=== PATIENT | female | born 1950 | race Caucasian/White ===

== ENCOUNTER 2024-01-13 16:12 | Inpatient (IN) | payer MEDICARE, OTHER ==
[~2024-01-13] VITALS: Ht 175.3 cm; Wt 68.0 kg
[2024-01-13 17:37] LABS: BASOPHILS % (AUTO) 0.1 % (0.0-2.0); EOSINOPHILS % (AUTO) 0.1 % (0.0-6.0); HEMATOCRIT 42 % (33-45); HEMOGLOBIN 13.8 g/dL (11.5-14.8); LYMPHOCYTES % (AUTO) 5.1 % (20.0-44.0); MEAN CORPUSCULAR HEMOGLOBIN 29 PG (26.0-33.0); MEAN CORPUSCULAR HGB CONC 33 g/dl (31.0-36.0); MEAN CORPUSCULAR VOLUME 87 fL (82-100); MONOCYTES # (AUTO) 1.7 K/uL (0.1-1.30); MONOCYTES % (AUTO) 8.8 % (2.0-12.0); NEUTROPHILS # (AUTO) 16.5 K/uL (1.8-8.9); NEUTROPHILS % (AUTO) 85.9 % (43.0-81.0); PLATELET COUNT (AUTO) 385 K/uL (150-450); RED BLOOD CELL COUNT(AUTO) 4.84 MIL/uL (4.0-5.2); RED CELL DISTRIBUTION WIDTH 16.6 % (11.5-15.0); WHITE BLOOD COUNT (AUTO) 19.3 K/uL (4.3-11.0)
[2024-01-13 17:50] LABS: CALCIUM, SERUM 8.5 mg/dL (8.5-10.1); CARBON DIOXIDE 30 mmol/L (21-32); CHLORIDE 101 mmol/L (98-107); CREATININE 0.6 mg/dL (0.6-1.3); GLUCOSE 127 mg/dL (74-106); POTASSIUM 4.2 mmol/L (3.5-5.1); SODIUM SERUM 138 mmol/L (136-145); UREA NITROGEN, BLOOD 19 mg/dL (7-18)
[2024-01-13 18:07] LABS: ALANINE AMINOTRANSFERASE 26 U/L (12-78); ALBUMIN 3.6 g/dL (3.4-5.0); ALKALINE PHOSPHATASE 133 U/L (46-116); ASPARTATE AMINOTRANSFERASE 9 U/L (15-37); BILIRUBIN,DIRECT 0.1 mg/dL (0.0-0.2); BILIRUBIN,TOTAL 0.4 mg/dL (0.2-1.0); TOTAL PROTEIN, SERUM 6.9 g/dL (6.4-8.2)
[2024-01-13 18:10] LABS: ACETAMINOPHEN <10 ug/ml (10-30); ALCOHOL, BLOOD < 3 mg/dL (0-10); SALICYLATE 0.4 mg/dL (2.8-20.0)
[2024-01-13 18:28] LABS: APPEARANCE,URINE CLEAR (CLEAR); BILIRUBIN,URINE NEGATIVE (NEGATIVE); BLOOD, URINE NEGATIVE Ery/uL (NEGATIVE); COLOR,URINE YELLOW (YELLOW); KETONES,URINE NEGATIVE (NEGATIVE); LEUKOCYTE ESTERASE ,URINE NEGATIVE (NEGATIVE); NITRITE, URINE NEGATIVE (NEGATIVE); PROTEIN,URINE 1+ mg/dl (NEGATIVE); UGLUCOSE NEGATIVE (NEGATIVE); UROBILINOGEN,URINE 0.2 EU/dL (0.2)
[2024-01-13 18:50] LABS: AMPHETAMINE, URINE NEGATIVE (NEGATIVE); BARBITURATE, URINE NEGATIVE (NEGATIVE); BENZODIAZEPINE, URINE NEGATIVE (NEGATIVE); CANNABINOID, URINE NEGATIVE (NEGATIVE); COCCAINE, URINE NEGATIVE (NEGATIVE); PHENCYCLIDINE SCREEN,URINE NEGATIVE (NEGATIVE)
[2024-01-13 18:51] LABS: OPIATE, URINE POSITIVE (NEGATIVE)
[2024-01-13 18:58] LABS: ADD URINE CULTURE NO; BACTERIA,URINE Few /HPF (None Seen); MUCUS,URINE Few /LPF (None Seen); RBC,URINE 0-2 /HPF (0-2); SQUAMOUS EPITHELIAL CELL,UR 0-2 /HPF (None Seen)
[2024-01-13] MEDS ORDERED: DOCU100C36 PO (19:09)
[2024-01-13] MEDS ORDERED: NALO4SPR NS (19:09)
[2024-01-13] MEDS ORDERED: NYST500P2 TP (19:09)
[2024-01-13] MEDS ORDERED: NYST15PO4 TP (19:09)
[2024-01-13] MEDS ORDERED: ASPI-1420 PO (19:09)
[2024-01-13] MEDS ORDERED: METO5TAB2 PO (19:09)
[2024-01-13] MEDS ORDERED: POLY15DR31 EACHEYE (19:09)
[2024-01-13] MEDS ORDERED: DIPH25TA62 PO (19:09)
[2024-01-13] MEDS ORDERED: FAMO20TA8 PO (19:09)
[2024-01-13] MEDS ORDERED: SENN8.6T19 PO (19:09)
[2024-01-13] MEDS ORDERED: ARGI1POW13 PO (19:09)
[2024-01-13] MEDS ORDERED: PANT40TA49 PO (19:09)
[2024-01-13] MEDS ORDERED: MENT8OIN TP (19:09)
[2024-01-13] MEDS ORDERED: ZINC50TA69 PO (19:09)
[2024-01-13] MEDS ORDERED: DIGO125T PO (19:09)
[2024-01-13] MEDS ORDERED: TURM1CAP2 PO (19:09)
[2024-01-13] MEDS ORDERED: MAGN400T52 PO (19:09)
[2024-01-13] MEDS ORDERED: LEVA15HF4 IH (19:09)
[2024-01-13] MEDS ORDERED: FLUT16SP BNOSTRILS (19:09)
[2024-01-13] MEDS ORDERED: GUAI-1189 PO (19:09)
[2024-01-13] MEDS ORDERED: SIME80TA15 PO (19:09)
[2024-01-13] MEDS ORDERED: DIPH-674 PO (19:09)
[2024-01-13] MEDS ORDERED: CYAN-51 PO (19:09)
[2024-01-13] MEDS ORDERED: METH57CR22 TP (19:09)
[2024-01-13] MEDS ORDERED: CRAN300T PO (19:09)
[2024-01-13] MEDS ORDERED: ONDA-97 PO (19:09)
[2024-01-13] MEDS ORDERED: LACT1CAP7 PO (19:09)
[2024-01-13] MEDS ORDERED: AMLO-212 PO (19:09)
[2024-01-13] MEDS ORDERED: ATOR10TA PO (19:09)
[2024-01-13] MEDS ORDERED: ACET-637 PO (19:09)
[2024-01-13] MEDS ORDERED: MORP15TA10 PO (19:09)
[2024-01-13] MEDS ORDERED: CEPHALEXIN MONOHYDRATE 500 MG CAPSULE PO ONE (19:21)
[2024-01-13 19:30] LABS: BAND % (MANUAL) 2 % (0.0-5.0); LYMPHOCYTES % (MANUAL) 9 % (16-48); MYELOCYTES % 2 % (0-0); NEUTROPHILS % (MANUAL) 87 (42-76)
[2024-01-13 19:31] LABS: ANISOCYTOSIS 1+; PLATELET ESTIMATE ADEQUATE
[2024-01-13] MEDS: CEPHALEXIN MONOHYDRATE 500 MG CAPSULE PO ONE (19:46)
[2024-01-13] MEDS ORDERED: MAGNESIUM HYDROXIDE 30 ML UDC PO PRN (23:00)
[2024-01-13] MEDS ORDERED: TEMAZEPAM 7.5 MG CAPSULE PO PRN ×2 (23:00)
[2024-01-13] MEDS ORDERED: ACETAMINOPHEN 325 MG TABLET PO PRN (23:00)
[2024-01-13] MEDS ORDERED: clonazePAM 0.5 MG TABLET PO PRN ×2 (23:00)
[2024-01-13] MEDS: BLOOD SUGAR DIAGNOSTIC 1 EACH STRIP IN ONE (23:12)
[2024-01-14] MEDS ORDERED: MENTHOL TP PRN (00:30)
[2024-01-14] MEDS ORDERED: CAMPHOR TP PRN (00:30)
[2024-01-14] MEDS ORDERED: DOCUSATE SODIUM 100 MG CAPSULE PO PRN (00:30)
[2024-01-14] MEDS ORDERED: ALBUTEROL HALF STRENGTH 1.25 MG/3 ML VIAL.NEB NEB PRN (01:00)
[2024-01-14] MEDS: MAGNESIUM OXIDE 400 MG TABLET PO SCH (05:00)
[2024-01-14] MEDS: OLANZAPINE 10 MG VIAL IM ONE ×2 (05:32→12:26)
[2024-01-14] MEDS ORDERED: ONDANSETRON 4 MG TAB.RAPDIS PO PRN (07:30)
[2024-01-14] MEDS: ASPIRIN EC 81 MG TABLET.DR PO SCH (08:30)
[2024-01-14] MEDS: SENNOSIDES 8.6 MG TABLET PO SCH (08:30)
[2024-01-14] MEDS: PANTOPRAZOLE 40 MG TABLET.DR PO SCH (08:30)
[2024-01-14] MEDS: LACTOBACILLUS RHAMNOSUS GG 1 EACH CAP.SPRINK PO SCH (08:31)
[2024-01-14] MEDS: AMLODIPINE BESYLATE 5 MG TABLET PO SCH (08:36)
[2024-01-14] MEDS: DIGOXIN 0.125 MG TABLET PO SCH (08:36)
[2024-01-14] MEDS ORDERED: ARGININE PO SCH (09:00)
[2024-01-14] MEDS: FLUTICASONE PROPIONATE 16 GM BOTTLE NS SCH (09:00)
[2024-01-14] MEDS: ZINC SULFATE 220 MG CAPSULE PO SCH (09:00)
[2024-01-14] MEDS ORDERED: Medication Not On Formulary EA (Cranberry Extract (Cranberry) 450 MG) PO SCH (09:00)
[2024-01-14] MEDS ORDERED: Medication Not On Formulary EA (Turmeric/Turmeric Root Extract (Turmeric 500 mg Capsule) PO SCH (09:00)
[2024-01-14] MEDS ORDERED: ASCORBIC ACID PO SCH (09:00)
[2024-01-14] MEDS: CEPHALEXIN MONOHYDRATE 500 MG CAPSULE PO SCH (09:00)
[2024-01-14] MEDS ORDERED: VITAMIN E PO SCH (09:00)
[2024-01-14] MEDS ORDERED: [UNRECOGNIZED DRUG - OTHER] PO SCH (09:00)
[2024-01-14] MEDS: CYANOCOBALAMIN 500 MCG TABLET PO SCH (09:05)
[2024-01-14] MEDS: diphenhydrAMINE HCL 50 MG/ML VIAL IM ONE (12:25)
[2024-01-14 15:18] LABS: EOSINOPHILS # (AUTO) 0.2 K/uL (0.0-0.7); EOSINOPHILS % (AUTO) 1.1 % (0.0-6.0); HEMATOCRIT 41 % (33-45); HEMOGLOBIN 13.5 g/dL (11.5-14.8); LYMPHOCYTES # (AUTO) 2.1 K/uL (0.8-4.8); LYMPHOCYTES % (AUTO) 13.1 % (20.0-44.0); MEAN CORPUSCULAR HEMOGLOBIN 29 PG (26.0-33.0); MEAN CORPUSCULAR HGB CONC 33 g/dl (31.0-36.0); MEAN CORPUSCULAR VOLUME 88 fL (82-100); MONOCYTES # (AUTO) 1.7 K/uL (0.1-1.30); MONOCYTES % (AUTO) 10.7 % (2.0-12.0); NEUTROPHILS # (AUTO) 11.9 K/uL (1.8-8.9); NEUTROPHILS % (AUTO) 75.1 % (43.0-81.0); PLATELET COUNT (AUTO) 365 K/uL (150-450); RED BLOOD CELL COUNT(AUTO) 4.65 MIL/uL (4.0-5.2); RED CELL DISTRIBUTION WIDTH 16.9 % (11.5-15.0); WHITE BLOOD COUNT (AUTO) 15.9 K/uL (4.3-11.0)
[2024-01-14 15:31] LABS: ALANINE AMINOTRANSFERASE 26 U/L (12-78); ALBUMIN 3.3 g/dL (3.4-5.0); ALKALINE PHOSPHATASE 128 U/L (46-116); ASPARTATE AMINOTRANSFERASE 15 U/L (15-37); BILIRUBIN,TOTAL 0.5 mg/dL (0.2-1.0); CALCIUM, SERUM 8.2 mg/dL (8.5-10.1); CARBON DIOXIDE 26 mmol/L (21-32); CHLORIDE 105 mmol/L (98-107); CREATININE 0.7 mg/dL (0.6-1.3); GLUCOSE 131 mg/dL (74-106); POTASSIUM 3.8 mmol/L (3.5-5.1); SODIUM SERUM 140 mmol/L (136-145); TOTAL PROTEIN, SERUM 6.4 g/dL (6.4-8.2); UREA NITROGEN, BLOOD 19 mg/dL (7-18)
[2024-01-14 15:33] LABS: CHOLESTEROL 239 mg/dL (<200); HDL CHOLESTEROL 79 mg/dL (40-60); LDL 125 mg/dL (0-99); TRIGLYCERIDES 246 mg/dL (30-150)
[2024-01-14 16:00] VITALS: BP 125/66; TEMP 98; O2SAT 97
[2024-01-14] MEDS: risperiDONE 1 MG TABLET PO SCH (17:00)
[2024-01-14] MEDS: MORPHINE SULFATE SR 15 MG TABLET.SA PO PRN (17:14)
[2024-01-14 20:00] VITALS: BP 121/65; TEMP 98.2; O2SAT 97
[2024-01-14] MEDS: METOCLOPRAMIDE HCL 10 MG TABLET PO PRN (20:03)
[2024-01-14] MEDS: ATORVASTATIN 10 MG TABLET PO SCH (21:11)
[2024-01-14] MEDS ORDERED: TEMAZEPAM 7.5 MG CAPSULE PO PRN (22:00)
[2024-01-15] MEDS: diphenhydrAMINE HCL 25 MG CAPSULE PO ONE (02:57)
[2024-01-15 08:00] VITALS: BP_SYST 134; BP_DIAS 53; BP_DIAS 63; TEMP 98.4; O2SAT 98
[2024-01-15] MEDS: OLANZAPINE 2.5 MG TABLET PO SCH (13:00)
[2024-01-15 16:00] VITALS: BP 126/64; TEMP 98; O2SAT 98
[2024-01-15 20:00] VITALS: BP 118/61; TEMP 98.4; O2SAT 97
[2024-01-15 20:48] VITALS: O2SAT 98
[2024-01-15] MEDS: LEVALBUTEROL HCL NEB 1.25 MG/0.5 ML VIAL.NEB NEB PRN (20:48)
[2024-01-15] MEDS: MUPIROCIN OINT 2% 22 GM TUBE NS SCH (21:00)
[2024-01-15 21:05] VITALS: O2SAT 99
[2024-01-16] VITALS (9 sets, daily range): BP systolic 106–119; BP diastolic 59–69; TEMP 98.2–99; O2SAT 96–99
[2024-01-16] MEDS: LEVALBUTEROL HCL NEB 1.25 MG/0.5 ML VIAL.NEB ONE ×2 (13:50→22:12)
[2024-01-16] MEDS ORDERED: PHENAZOPYRIDINE HCL 200 MG TABLET PO PRN (19:00)
[2024-01-17] MEDS: PHENAZOPYRIDINE HCL 200 MG TABLET ONE (03:12)
[2024-01-17] MEDS: PHENAZOPYRIDINE HCL 200 MG TABLET PO PRN (03:15)
[2024-01-17 06:54] LABS: BASOPHILS % (AUTO) 0.2 % (0.0-2.0); EOSINOPHILS # (AUTO) 1.3 K/uL (0.0-0.7); EOSINOPHILS % (AUTO) 12.2 % (0.0-6.0); HEMATOCRIT 38 % (33-45); HEMOGLOBIN 12.6 g/dL (11.5-14.8); LYMPHOCYTES # (AUTO) 1.1 K/uL (0.8-4.8); LYMPHOCYTES % (AUTO) 10.6 % (20.0-44.0); MEAN CORPUSCULAR HEMOGLOBIN 29 PG (26.0-33.0); MEAN CORPUSCULAR HGB CONC 33 g/dl (31.0-36.0); MEAN CORPUSCULAR VOLUME 89 fL (82-100); MONOCYTES # (AUTO) 0.6 K/uL (0.1-1.30); NEUTROPHILS # (AUTO) 7.5 K/uL (1.8-8.9); PLATELET COUNT (AUTO) 222 K/uL (150-450); RED BLOOD CELL COUNT(AUTO) 4.31 MIL/uL (4.0-5.2); RED CELL DISTRIBUTION WIDTH 16.4 % (11.5-15.0); WHITE BLOOD COUNT (AUTO) 10.5 K/uL (4.3-11.0)
[2024-01-17 07:13] LABS: CALCIUM, SERUM 7.7 mg/dL (8.5-10.1); CARBON DIOXIDE 32 mmol/L (21-32); CHLORIDE 104 mmol/L (98-107); CREATININE 0.6 mg/dL (0.6-1.3); GLUCOSE 114 mg/dL (74-106); MAGNESIUM 2.7 mg/dL (1.8-2.4); PHOSPHORUS 3.3 mg/dL (2.5-4.9); SODIUM SERUM 139 mmol/L (136-145); UREA NITROGEN, BLOOD 14 mg/dL (7-18)
[2024-01-17 08:00] VITALS: BP 134/61; TEMP 99.1; O2SAT 96
[2024-01-17] MEDS: diphenhydrAMINE HCL ELIX 25 MG/10 ML UDC PO PRN (14:04)
[2024-01-17 16:00] VITALS: BP 111/66; TEMP 99.1; O2SAT 100
[2024-01-17 20:10] VITALS: O2SAT 96
[2024-01-17 20:20] VITALS: O2SAT 99
[2024-01-17] MEDS: LEVALBUTEROL HCL NEB 1.25 MG/0.5 ML VIAL.NEB ONE (20:22)
[2024-01-17 20:35] VITALS: BP 127/58; TEMP 99; O2SAT 96
[2024-01-18] VITALS (11 sets, daily range): BP systolic 130–140; BP diastolic 60–67; TEMP 98.4–98.8; O2SAT 95–98
[2024-01-18] MEDS: LORATADINE 10 MG TABLET PO SCH (00:37)
[2024-01-18] MEDS: dexAMETHasone 1 MG TABLET PO SCH (14:23)
[2024-01-18] MEDS: PHENAZOPYRIDINE HCL 200 MG TABLET ONE (22:03)
[2024-01-19 08:00] VITALS: BP 139/60; TEMP 98.4; O2SAT 98
[2024-01-19 12:46] VITALS: O2SAT 97
[2024-01-19 12:57] VITALS: O2SAT 98
[2024-01-19 16:00] VITALS: BP 131/51; TEMP 99.1; O2SAT 98
[2024-01-19] MEDS: POLYVINYL ALCOHOL 15 ML BOTTLE EACHEYE PRN (18:26)
[2024-01-19 20:38] VITALS: BP 132/58; TEMP 98.6; O2SAT 97
[2024-01-20 08:00] VITALS: BP 131/63; TEMP 97.7; O2SAT 98
[2024-01-20] MEDS: METHYL SALICYLATE/MENTHOL 28GM 28 GM TUBE TP PRN (10:35)
[2024-01-20] MEDS: SIMETHICONE 80 MG TAB.CHEW PO PRN (10:35)
[2024-01-20 16:00] VITALS: BP 126/58; TEMP 97.8; O2SAT 97
[2024-01-20] MEDS: FAMOTIDINE (20 MG) 20 MG TABLET PO SCH (17:20)
[2024-01-20] MEDS: dexAMETHasone 1 MG/ML UDC PO SCH (19:51)
[2024-01-20 20:00] VITALS: BP 131/66; TEMP 97.9; O2SAT 97
[2024-01-20 20:20] LABS: APPEARANCE,URINE CLEAR (CLEAR); BILIRUBIN,URINE NEGATIVE (NEGATIVE); BLOOD, URINE NEGATIVE Ery/uL (NEGATIVE); COLOR,URINE YELLOW (YELLOW); KETONES,URINE NEGATIVE (NEGATIVE); LEUKOCYTE ESTERASE ,URINE NEGATIVE (NEGATIVE); NITRITE, URINE NEGATIVE (NEGATIVE); PROTEIN,URINE NEGATIVE (NEGATIVE); UGLUCOSE 1+ mg/dL (NEGATIVE); UROBILINOGEN,URINE 0.2 EU/dL (0.2)
[2024-01-20 20:32] LABS: ADD URINE CULTURE NO; BACTERIA,URINE Rare /HPF (None Seen); RBC,URINE 0-2 /HPF (0-2); SQUAMOUS EPITHELIAL CELL,UR None Seen /HPF (None Seen); WBC,URINE NONE SEEN /HPF (0-3)
[2024-01-21 07:24] LABS: BASOPHILS % (AUTO) 0.2 % (0.0-2.0); HEMATOCRIT 36 % (33-45); LYMPHOCYTES # (AUTO) 0.7 K/uL (0.8-4.8); LYMPHOCYTES % (AUTO) 7.5 % (20.0-44.0); MEAN CORPUSCULAR HEMOGLOBIN 29 PG (26.0-33.0); MEAN CORPUSCULAR HGB CONC 33 g/dl (31.0-36.0); MEAN CORPUSCULAR VOLUME 88 fL (82-100); MONOCYTES # (AUTO) 0.5 K/uL (0.1-1.30); MONOCYTES % (AUTO) 5.6 % (2.0-12.0); NEUTROPHILS # (AUTO) 7.9 K/uL (1.8-8.9); NEUTROPHILS % (AUTO) 86.7 % (43.0-81.0); PLATELET COUNT (AUTO) 225 K/uL (150-450); RED BLOOD CELL COUNT(AUTO) 4.11 MIL/uL (4.0-5.2); RED CELL DISTRIBUTION WIDTH 16.4 % (11.5-15.0); WHITE BLOOD COUNT (AUTO) 9.2 K/uL (4.3-11.0)
[2024-01-21 07:50] LABS: ALKALINE PHOSPHATASE 112 U/L (46-116); CALCIUM, SERUM 8.2 mg/dL (8.5-10.1); CARBON DIOXIDE 27 mmol/L (21-32); CHLORIDE 106 mmol/L (98-107); CREATININE 0.6 mg/dL (0.6-1.3); GLUCOSE 124 mg/dL (74-106); SODIUM SERUM 139 mmol/L (136-145); UREA NITROGEN, BLOOD 18 mg/dL (7-18)
[2024-01-21 08:00] VITALS: BP 128/68; TEMP 97.9; O2SAT 97
[2024-01-21] MEDS: OLANZAPINE 10 MG VIAL IM ONE (10:53)
[2024-01-21 11:43] VITALS: O2SAT 97
[2024-01-21 12:02] VITALS: O2SAT 99
[2024-01-21 16:00] VITALS: BP 132/66; TEMP 98.4; O2SAT 98
[2024-01-21] MEDS: dexAMETHasone 1 MG TABLET PO SCH (17:00)
[2024-01-22 08:00] VITALS: BP 136/76; TEMP 98.1; O2SAT 98
[2024-01-22 16:00] VITALS: BP_SYST 130; BP_DIAS 58; BP_DIAS 68; TEMP 97.7; O2SAT 97
[2024-01-22 20:00] VITALS: BP 125/56; TEMP 97.9; O2SAT 98
[2024-01-23 08:00] VITALS: BP 140/79; TEMP 98.1; O2SAT 98
[2024-01-23 16:00] VITALS: BP 135/59; TEMP 98.6; O2SAT 98
[2024-01-23 20:29] VITALS: BP 135/65; TEMP 97.7; O2SAT 98
[2024-01-24 07:56] VITALS: BP 139/62; TEMP 98.4; O2SAT 97
[2024-01-24 16:00] VITALS: BP 143/63; TEMP 98; O2SAT 97
[2024-01-24 20:39] VITALS: BP 140/68; TEMP 97.8; O2SAT 96
[2024-01-25 08:00] VITALS: BP 147/71; TEMP 98.4; O2SAT 97
[2024-01-25 16:00] VITALS: BP 134/60; TEMP 98.1; O2SAT 97
[2024-01-25 20:41] VITALS: BP 136/57; TEMP 98.8; O2SAT 97
[2024-01-26 04:35] VITALS: O2SAT 98
[2024-01-26 04:50] VITALS: O2SAT 99
[2024-01-26 08:00] VITALS: BP 126/54; TEMP 98.4; O2SAT 98
[2024-01-26] MEDS: OLANZAPINE 10 MG VIAL IM ONE (15:16)
[2024-01-26] MEDS: diphenhydrAMINE HCL 50 MG/ML VIAL IM ONE (15:16)
[2024-01-26 16:00] VITALS: BP 143/64; TEMP 98.2; O2SAT 99
[2024-01-26 20:46] VITALS: BP 118/60; TEMP 98.2; O2SAT 97
[2024-01-27 09:23] VITALS: BP 152/68; TEMP 98.8; O2SAT 95
[2024-01-27 10:45] VITALS: O2SAT 98
[2024-01-27 11:00] VITALS: O2SAT 98
[2024-01-27 16:00] VITALS: BP 124/64; TEMP 99; O2SAT 97
[2024-01-27 20:00] VITALS: BP 109/57; TEMP 99.1; O2SAT 97
[2024-01-28] VITALS (7 sets, daily range): BP systolic 124–139; BP diastolic 62–76; TEMP 98.8–99.1; O2SAT 96–99
[2024-01-28] MEDS: OLANZAPINE 2.5 MG TABLET PO SCH (16:39)
[2024-01-28] MEDS: OLANZAPINE 10 MG VIAL IM PRN (17:14)
[2024-01-28] MEDS: MAG HYDROX/AL HYDROX/SIMETH 30 ML UDC PO PRN (23:00)
[2024-01-29 08:00] VITALS: BP 146/71; TEMP 98.2; O2SAT 97
[2024-01-29 16:00] VITALS: BP 116/63; TEMP 98.1; O2SAT 100
[2024-01-29 20:00] VITALS: BP 132/66; TEMP 98.6; O2SAT 97
[2024-01-29 23:04] VITALS: O2SAT 97
[2024-01-29 23:14] VITALS: O2SAT 99
[2024-01-30 08:00] VITALS: BP 136/76; TEMP 98.2; O2SAT 96
[2024-01-30 15:00] VITALS: O2SAT 96
[2024-01-30 15:09] VITALS: O2SAT 99
[2024-01-30 16:00] VITALS: BP 127/75; TEMP 98.2; O2SAT 96
[2024-01-30 20:21] VITALS: BP 132/61; TEMP 98; O2SAT 97
[2024-01-31 08:00] VITALS: BP 132/71; TEMP 98.4; O2SAT 98
[2024-01-31 10:45] VITALS: O2SAT 97
[2024-01-31 10:56] VITALS: O2SAT 98
[2024-01-31] MEDS ORDERED: GUAIFENESIN/CODEINE 10 ML UDC PO PRN (12:00)
[2024-01-31 15:45] VITALS: BP 120/61; TEMP 97.9; O2SAT 97
[2024-01-31 20:28] VITALS: BP 136/64; TEMP 97.9; O2SAT 97
[2024-02-01 08:00] VITALS: BP 136/67; TEMP 99; O2SAT 98
[2024-02-01 10:44] VITALS: O2SAT 96
[2024-02-01 10:56] VITALS: O2SAT 99
[2024-02-01 16:00] VITALS: BP 136/63; TEMP 98.4; O2SAT 97
[2024-02-01 21:07] VITALS: BP 125/60; TEMP 98.2; O2SAT 97
[2024-02-02 06:31] VITALS: O2SAT 99
[2024-02-02 06:46] VITALS: O2SAT 99
[2024-02-02 08:00] VITALS: BP 135/60; TEMP 98.6; O2SAT 98
[2024-02-02 09:03] VITALS: BP 135/60
== END 2024-02-02 13:35 | DRG 885 ==
LOC: ER 16:16 → GPS 21:40
PROVIDERS: ADMIT Nurse Practitioner Psychiatric/Mental Health; ATTEND Internal Medicine
DX: F29 Unspecified psychosis not due to a substance or known physiological condition (principal); I11.0 Hypertensive heart disease with heart failure; I50.33 Acute on chronic diastolic (congestive) heart failure; N39.0 Urinary tract infection, site not specified; Z87.11 Personal history of peptic ulcer disease; Z20.822 Contact with and (suspected) exposure to COVID-19; F41.9 Anxiety disorder, unspecified; F84.0 Autistic disorder; G31.84 Mild cognitive impairment of uncertain or unknown etiology; F39 Unspecified mood [affective] disorder; R21 Rash and other nonspecific skin eruption; Z91.148 Patient's other noncompliance with medication regimen for other reason; B96.89 Other specified bacterial agents as the cause of diseases classified elsewhere; Z88.8 Allergy status to other drugs, medicaments and biological substances; K25.9 Gastric ulcer, unspecified as acute or chronic, without hemorrhage or perforation; D72.829 Elevated white blood cell count, unspecified; Z91.199 Patient's noncompliance with other medical treatment and regimen due to unspecified reason; Z88.1 Allergy status to other antibiotic agents; F19.959 Other psychoactive substance use, unspecified with psychoactive substance-induced psychotic disorder, unspecified
CPT/HCPCS: 36415; 71045-TC; 80048-TC; 80053-TC; 80061-TC; 80076-TC; 81001; 83735-TC; 84075-TC; 84100-TC; 84484-TC; 85025-TC; 85378-TC; 87081-TC; 94760-TC; 94761-TC; 94799-TC; 97110-TC; 97530-TC; 98960; G0480; J1200; J3490; J8540; J8597; Q0163

== ENCOUNTER 2024-06-24 03:08 | Inpatient (IN) | payer MEDICARE, OTHER ==
[~2024-06-24] VITALS: Ht 175.3 cm; Wt 49.4 kg
[~2024-06-24 03:08] MED LIST: ACET-637 PO; AMLO-212 PO; ARGI1POW13 PO; ASPI-1420 PO; ATOR10TA PO; CRAN300T PO; CYAN-51 PO; DIGO125T PO; DIPH-674 PO; DIPH25TA62 PO; DOCU100C36 PO; FAMO20TA8 PO; FLUT16SP BNOSTRILS; GUAI-1189 PO; LACT1CAP7 PO; LEVA15HF4 IH; MAGN400T52 PO; MENT8OIN TP; METH57CR22 TP; METO5TAB2 PO; MORP15TA10 PO; NALO4SPR NS; NYST15PO4 TP; NYST500P2 TP; ONDA-97 PO; PANT40TA49 PO; POLY15DR31 EACHEYE; SENN8.6T19 PO; SIME80TA15 PO; TURM1CAP2 PO; ZINC50TA69 PO
[2024-06-24 03:39] LABS: BASOPHILS % (AUTO) 0.1 % (0.0-2.0); EOSINOPHILS % (AUTO) 0.4 % (0.0-6.0); HEMATOCRIT 45 % (33-45); HEMOGLOBIN 15.4 g/dL (11.5-14.8); LYMPHOCYTES # (AUTO) 0.9 K/uL (0.8-4.8); LYMPHOCYTES % (AUTO) 15.6 % (20.0-44.0); MEAN CORPUSCULAR HEMOGLOBIN 27 PG (26.0-33.0); MEAN CORPUSCULAR HGB CONC 34 g/dl (31.0-36.0); MEAN CORPUSCULAR VOLUME 81 fL (82-100); MONOCYTES # (AUTO) 0.3 K/uL (0.1-1.30); MONOCYTES % (AUTO) 4.3 % (2.0-12.0); NEUTROPHILS # (AUTO) 4.8 K/uL (1.8-8.9); NEUTROPHILS % (AUTO) 79.6 % (43.0-81.0); PLATELET COUNT (AUTO) 126 K/uL (150-450); RED BLOOD CELL COUNT(AUTO) 5.62 MIL/uL (4.0-5.2); RED CELL DISTRIBUTION WIDTH 17.8 % (11.5-15.0)
[2024-06-24 03:46] LABS: CALCIUM, SERUM 8.8 mg/dL (8.5-10.1); CREATININE 0.5 mg/dL (0.6-1.3); POTASSIUM 2.9 mmol/L (3.5-5.1)
[2024-06-24 03:52] LABS: ALBUMIN 2.8 g/dL (3.4-5.0); BILIRUBIN,DIRECT 0.3 mg/dL (0.0-0.2); BILIRUBIN,TOTAL 0.8 mg/dL (0.2-1.0); TOTAL PROTEIN, SERUM 5.6 g/dL (6.4-8.2)
[2024-06-24] MEDS: POTASSIUM CHLORIDE 20 MEQ TAB.PRT.SR PO ONE (04:00)
[2024-06-24] MEDS ORDERED: POTASSIUM CHLORIDE 20 MEQ TAB.PRT.SR PO ONE (04:01)
[2024-06-24 04:25] LABS: APPEARANCE,URINE CLEAR (CLEAR); BILIRUBIN,URINE 1+ (NEGATIVE); BLOOD, URINE 1+ Ery/uL (NEGATIVE); COLOR,URINE DARK YELLOW (YELLOW); KETONES,URINE 1+ mg/dL (NEGATIVE); LEUKOCYTE ESTERASE ,URINE 2+ (NEGATIVE); NITRITE, URINE POSITIVE (NEGATIVE); PROTEIN,URINE TRACE mg/dl (NEGATIVE); UGLUCOSE NEGATIVE (NEGATIVE)
[2024-06-24] MEDS ORDERED: ONDANSETRON HCL/PF 4 MG/2 ML VIAL IVP PRN (04:30)
[2024-06-24] MEDS ORDERED: MAGNESIUM HYDROXIDE 30 ML UDC PO PRN (04:30)
[2024-06-24] MEDS ORDERED: ACETAMINOPHEN 325 MG TABLET PO PRN (04:30)
[2024-06-24] MEDS ORDERED: MAG HYDROX/AL HYDROX/SIMETH 30 ML UDC PO PRN (04:30)
[2024-06-24 04:36] LABS: ADD URINE CULTURE YES; BACTERIA,URINE Few /HPF (None Seen); SQUAMOUS EPITHELIAL CELL,UR Rare /HPF (None Seen); WBC,URINE 51-80 /HPF (0-3)
[2024-06-24] MEDS: IV D5/ 0.9% NACL 1,000 ML IV SCH (04:40)
[2024-06-24] MEDS: CEFTRIAXONE 1GM BAG (ER ONLY) 1 GM/50 ML PIGGYBACK IV ONE (04:44)
[2024-06-24] MEDS ORDERED: CEFTRIAXONE 1GM BAG (ER ONLY) 50 ML IV ONE (04:44)
[2024-06-24] MEDS: ENSURE ENLIVE 237 ML LIQUID (VANILLA) PO SCH (08:00)
[2024-06-24 08:30] VITALS: BP 120/74; TEMP 98.7; O2SAT 95
[2024-06-24] MEDS ORDERED: MAGN400O6 PO (08:48)
[2024-06-24] MEDS ORDERED: BISA5TAB56 PO (08:48)
[2024-06-24] MEDS ORDERED: NITR0.4T48 SL (08:48)
[2024-06-24] MEDS ORDERED: POLY15DR40 EACHEYE (08:48)
[2024-06-24] MEDS ORDERED: MIRT-90 PO (08:48)
[2024-06-24] MEDS ORDERED: BISA5TAB10 PO (08:48)
[2024-06-24 16:00] VITALS: BP 119/81; TEMP 97.7; O2SAT 97
[2024-06-24] MEDS ORDERED: MORPHINE SULFATE SR 15 MG TABLET.SA PO PRN (16:00)
[2024-06-24] MEDS: PANTOPRAZOLE 40 MG TABLET.DR PO SCH (16:02)
[2024-06-24 20:00] VITALS: BP 112/71; TEMP 97.3; O2SAT 98
[2024-06-24] MEDS: MIRTAZAPINE 15 MG TABLET PO SCH (21:14)
[2024-06-25] MEDS: CEFTRIAXONE 1 G in IV D5W 50 ML IV SCH (04:22)
[2024-06-25] MEDS: DIGOXIN 0.125 MG TABLET PO SCH (07:30)
[2024-06-25 08:00] VITALS: BP 132/78; TEMP 98.4; O2SAT 93
[2024-06-25] MEDS: ASPIRIN EC 81 MG TABLET.DR PO SCH (09:00)
[2024-06-25 13:16] LABS: BASOPHILS % (AUTO) 0.1 % (0.0-2.0); EOSINOPHILS % (AUTO) 0.2 % (0.0-6.0); HEMATOCRIT 46 % (33-45); HEMOGLOBIN 15.2 g/dL (11.5-14.8); LYMPHOCYTES # (AUTO) 0.9 K/uL (0.8-4.8); LYMPHOCYTES % (AUTO) 15.1 % (20.0-44.0); MEAN CORPUSCULAR HEMOGLOBIN 27 PG (26.0-33.0); MEAN CORPUSCULAR HGB CONC 33 g/dl (31.0-36.0); MEAN CORPUSCULAR VOLUME 83 fL (82-100); MONOCYTES # (AUTO) 0.2 K/uL (0.1-1.30); MONOCYTES % (AUTO) 4.2 % (2.0-12.0); NEUTROPHILS # (AUTO) 4.7 K/uL (1.8-8.9); NEUTROPHILS % (AUTO) 80.4 % (43.0-81.0); PLATELET COUNT (AUTO) 86 K/uL (150-450); RED BLOOD CELL COUNT(AUTO) 5.55 MIL/uL (4.0-5.2); RED CELL DISTRIBUTION WIDTH 17.7 % (11.5-15.0); WHITE BLOOD COUNT (AUTO) 5.9 K/uL (4.3-11.0)
[2024-06-25 13:30] LABS: CALCIUM, SERUM 8.7 mg/dL (8.5-10.1); CREATININE 0.4 mg/dL (0.6-1.3); MAGNESIUM 2.6 mg/dL (1.8-2.4); PHOSPHORUS 2.6 mg/dL (2.5-4.9); POTASSIUM 3.7 mmol/L (3.5-5.1)
[2024-06-25 14:18] LABS: EOSINOPHILS % (MANUAL) 1 % (0-4); LYMPHOCYTES % (MANUAL) 10 % (16-48); NEUTROPHILS % (MANUAL) 89 (42-76)
[2024-06-25 14:19] LABS: PLATELET ESTIMATE DECREASED
[2024-06-25 16:00] VITALS: BP 122/84; TEMP 97.5; O2SAT 96
[2024-06-25 20:00] VITALS: BP 127/77; TEMP 97.3; O2SAT 98
[2024-06-25 21:37] VITALS: BP 127/77; TEMP 97.3; O2SAT 98
[2024-06-26 09:48] LABS: BASOPHILS % (AUTO) 0.1 % (0.0-2.0); EOSINOPHILS % (AUTO) 0.4 % (0.0-6.0); HEMATOCRIT 46 % (33-45); HEMOGLOBIN 14.8 g/dL (11.5-14.8); LYMPHOCYTES # (AUTO) 0.9 K/uL (0.8-4.8); LYMPHOCYTES % (AUTO) 15.3 % (20.0-44.0); MEAN CORPUSCULAR HEMOGLOBIN 27 PG (26.0-33.0); MEAN CORPUSCULAR HGB CONC 32 g/dl (31.0-36.0); MEAN CORPUSCULAR VOLUME 85 fL (82-100); MONOCYTES # (AUTO) 0.3 K/uL (0.1-1.30); MONOCYTES % (AUTO) 4.1 % (2.0-12.0); NEUTROPHILS # (AUTO) 4.9 K/uL (1.8-8.9); NEUTROPHILS % (AUTO) 80.1 % (43.0-81.0); PLATELET COUNT (AUTO) 63 K/uL (150-450); RED BLOOD CELL COUNT(AUTO) 5.45 MIL/uL (4.0-5.2); RED CELL DISTRIBUTION WIDTH 18.6 % (11.5-15.0); WHITE BLOOD COUNT (AUTO) 6.2 K/uL (4.3-11.0)
[2024-06-26 09:54] LABS: CREATININE 0.6 mg/dL (0.6-1.3)
[2024-06-26 10:08] LABS: POTASSIUM 2.8 mmol/L (3.5-5.1)
[2024-06-26] MEDS: POTASSIUM CL. PREMIX PERIPHER. 50 ML IV SCH (10:56)
[2024-06-26] MEDS ORDERED: Potassium Chloride 20 MEQ in IV D5/0.45 NACL 1,000 ML IV PRN (11:00)
[2024-06-26 13:34] LABS: LYMPHOCYTES % (MANUAL) 6 % (16-48); MONOCYTES % (MANUAL) 2 % (0-11.0); NEUTROPHILS % (MANUAL) 92 (42-76); PLATELET ESTIMATE DECREASED
[2024-06-26 16:07] VITALS: BP 125/66; TEMP 98; O2SAT 99
[2024-06-26] MEDS: Potassium Chloride 20 MEQ in IV D5/0.45 NACL 1,000 ML IV SCH (17:46)
[2024-06-26] MEDS: OLANZAPINE ZYDIS 5 MG TAB.RAPDIS PO SCH (20:35)
[2024-06-26 20:45] VITALS: BP 143/69; TEMP 97.7; O2SAT 99
[2024-06-26] MEDS ORDERED: IV PREMIX D5 1/2NS + KCL 1,000 ML IV ONE (23:37)
[2024-06-27] MEDS: Potassium Chloride 20 MEQ in IV D5/0.45 NACL 1,000 ML IV SCH (02:32)
[2024-06-27 07:46] LABS: BASOPHILS % (AUTO) 0.2 % (0.0-2.0); EOSINOPHILS # (AUTO) 0.1 K/uL (0.0-0.7); EOSINOPHILS % (AUTO) 1.1 % (0.0-6.0); HEMATOCRIT 44 % (33-45); HEMOGLOBIN 14.4 g/dL (11.5-14.8); LYMPHOCYTES # (AUTO) 1.3 K/uL (0.8-4.8); LYMPHOCYTES % (AUTO) 27.6 % (20.0-44.0); MEAN CORPUSCULAR HEMOGLOBIN 27 PG (26.0-33.0); MEAN CORPUSCULAR HGB CONC 33 g/dl (31.0-36.0); MEAN CORPUSCULAR VOLUME 81 fL (82-100); MONOCYTES # (AUTO) 0.2 K/uL (0.1-1.30); MONOCYTES % (AUTO) 4.4 % (2.0-12.0); NEUTROPHILS # (AUTO) 3.2 K/uL (1.8-8.9); NEUTROPHILS % (AUTO) 66.7 % (43.0-81.0); PLATELET COUNT (AUTO) 102 K/uL (150-450); RED BLOOD CELL COUNT(AUTO) 5.37 MIL/uL (4.0-5.2); RED CELL DISTRIBUTION WIDTH 17.9 % (11.5-15.0); WHITE BLOOD COUNT (AUTO) 4.8 K/uL (4.3-11.0)
[2024-06-27 08:10] LABS: ALBUMIN 2.4 g/dL (3.4-5.0); BILIRUBIN,DIRECT 0.1 mg/dL (0.0-0.2); BILIRUBIN,TOTAL 0.5 mg/dL (0.2-1.0); CALCIUM, SERUM 8.3 mg/dL (8.5-10.1); CREATININE 0.5 mg/dL (0.6-1.3); POTASSIUM 3.2 mmol/L (3.5-5.1); TOTAL PROTEIN, SERUM 5.1 g/dL (6.4-8.2)
[2024-06-27 08:18] LABS: C-REACTIVE PROTEIN 0.48 mg/dL (0.0-0.30); THYROID STIMULATING HORMONE 1.61 uIU/mL (0.358-3.74)
[2024-06-27 08:19] LABS: RHEUMATOID FACTOR SCREEN NEGATIVE (NEGATIVE)
[2024-06-27 08:24] VITALS: BP 116/68; TEMP 98.1; O2SAT 96
[2024-06-27] MEDS: THERAHONEY GEL 1.5 OZ TUBE TP SCH (09:09)
[2024-06-27] MEDS: MUPIROCIN OINT 2% 22 GM TUBE NS SCH (11:42)
[2024-06-27] MEDS ORDERED: NALOXONE HCL 0.4 MG/ML AMPUL IV PRN (13:00)
[2024-06-27] MEDS: ARGININE/GLUTAMINE/CALCIUM BMB 1 EACH POWD.PACK PO SCH (15:00)
[2024-06-27 16:06] VITALS: BP 123/82; TEMP 97.5; O2SAT 96
[2024-06-27] MEDS: K PHOS NEUTRAL 250 MG TABLET PO ONE (16:10)
[2024-06-27 20:00] VITALS: BP 115/87; TEMP 97.7; O2SAT 97
[2024-06-28 06:11] LABS: HEPATITIS B SURFACE AB (QUAL) Reactive (.)
[2024-06-28 07:07] LABS: FOLIC ACID < 2.0 ng/mL (>3.0)
[2024-06-28 08:00] VITALS: BP 135/83; TEMP 97.5; O2SAT 97
[2024-06-28 08:11] LABS: IMMUNOGLOBULIN A, SERUM 234 mg/dL (64-422); IMMUNOGLOBULIN G, SERUM 548 mg/dL (586-1602); IMMUNOGLOBULIN M, SERUM 34 mg/dL (26-217)
[2024-06-28 15:12] LABS: *ANA ANTI-CENTROMERE B AB <0.2 AI (0.0-0.9); *ANA ANTI-DNA(DS) AB, QN <1 IU/mL (0-9); *ANA ANTI-JO-1 <0.2 AI (0.0-0.9); *ANA ANTICHROMATIN ANTIBODY <0.2 AI (0.0-0.9); *ANA RNP ANTIBODIES <0.2 AI (0.0-0.9); *ANA SJOGREN'S ANTI-SS-A <0.2 AI (0.0-0.9); *ANA SJOGREN'S ANTI-SS-B <0.2 AI (0.0-0.9); *ANAANTI-SCLERODERMA-70 AB <0.2 AI (0.0-0.9); *ANASMITH AB <0.2 AI (0.0-0.9)
[2024-06-28 16:00] VITALS: BP 124/75; TEMP 98.4; O2SAT 96
[2024-06-28 20:00] VITALS: BP 117/85; TEMP 97.5; O2SAT 97
[2024-06-29 07:22] LABS: CALCIUM, SERUM 8.3 mg/dL (8.5-10.1); CREATININE 0.5 mg/dL (0.6-1.3); MAGNESIUM 1.9 mg/dL (1.8-2.4); PHOSPHORUS 2.3 mg/dL (2.5-4.9); POTASSIUM 3.3 mmol/L (3.5-5.1)
[2024-06-29 07:49] LABS: D-DIMER 2.51 mg/L(FEU (0.17-0.50); INR 1.05 (0.91-1.10); PARTIAL THROMBOPLASTIN TIME 24.5 SEC (24.3-34.3); PROTHROMBIN TIME 11.1 SECS (9.2-11.1)
[2024-06-29 08:00] VITALS: BP 104/57; TEMP 97.9; O2SAT 98
[2024-06-29 08:04] LABS: BASOPHILS % (AUTO) 0.2 % (0.0-2.0); EOSINOPHILS # (AUTO) 0.1 K/uL (0.0-0.7); EOSINOPHILS % (AUTO) 1.4 % (0.0-6.0); HEMATOCRIT 48 % (33-45); HEMOGLOBIN 15.7 g/dL (11.5-14.8); LYMPHOCYTES # (AUTO) 1.6 K/uL (0.8-4.8); LYMPHOCYTES % (AUTO) 32.7 % (20.0-44.0); MEAN CORPUSCULAR HEMOGLOBIN 27 PG (26.0-33.0); MEAN CORPUSCULAR HGB CONC 33 g/dl (31.0-36.0); MEAN CORPUSCULAR VOLUME 82 fL (82-100); MONOCYTES # (AUTO) 0.2 K/uL (0.1-1.30); MONOCYTES % (AUTO) 4.7 % (2.0-12.0); RED BLOOD CELL COUNT(AUTO) 5.87 MIL/uL (4.0-5.2); WHITE BLOOD COUNT (AUTO) 4.9 K/uL (4.3-11.0)
[2024-06-29 08:08] LABS: PLATELET COUNT (AUTO) 53 K/uL (150-450)
[2024-06-29] MEDS: FOLIC ACID 1 MG TABLET PO SCH (10:26)
[2024-06-29] MEDS: POTASSIUM CL. PREMIX PERIPHER. 50 ML IV SCH (10:58)
[2024-06-29] MEDS: MEGESTROL ACETATE 40 MG TABLET PO SCH (11:30)
[2024-06-29 13:59] LABS: LYMPHOCYTES % (MANUAL) 28 % (16-48); MONOCYTES % (MANUAL) 5 % (0-11.0); NEUTROPHILS % (MANUAL) 67 (42-76)
[2024-06-29 14:00] LABS: ANISOCYTOSIS 1+; PLATELET ESTIMATE DECREASED
[2024-06-29 16:00] VITALS: BP 134/61; TEMP 98.1; O2SAT 98
[2024-06-29] MEDS: K PHOS NEUTRAL 250 MG TABLET PO ONE (16:52)
[2024-06-29] MEDS: OLANZAPINE 2.5 MG TABLET PO SCH (16:53)
[2024-06-29 20:00] VITALS: BP 133/64; TEMP 98.2; O2SAT 97
[2024-06-29] MEDS: OLANZAPINE 10 MG TABLET PO SCH (21:55)
[2024-06-30 08:00] VITALS: BP 135/80; TEMP 97.2; O2SAT 98
[2024-06-30] MEDS ORDERED: CEFD300C3 PO (11:02)
[2024-06-30] MEDS ORDERED: LACT-246 PO (11:02)
[2024-06-30] MEDS ORDERED: MEGE40TA7 PO (11:02)
[2024-06-30] MEDS ORDERED: Olanzapine PO ×2 (11:02)
[2024-06-30 13:01] LABS: CALCIUM, SERUM 8.3 mg/dL (8.5-10.1); CREATININE 0.5 mg/dL (0.6-1.3); MAGNESIUM 1.6 mg/dL (1.8-2.4); PHOSPHORUS 2.7 mg/dL (2.5-4.9); POTASSIUM 3.2 mmol/L (3.5-5.1)
[2024-06-30 13:53] LABS: BASOPHILS % (AUTO) 0.2 % (0.0-2.0); EOSINOPHILS # (AUTO) 0.1 K/uL (0.0-0.7); EOSINOPHILS % (AUTO) 1.2 % (0.0-6.0); HEMATOCRIT 44 % (33-45); HEMOGLOBIN 15.1 g/dL (11.5-14.8); LYMPHOCYTES # (AUTO) 1.3 K/uL (0.8-4.8); LYMPHOCYTES % (AUTO) 29.5 % (20.0-44.0); MEAN CORPUSCULAR HEMOGLOBIN 27 PG (26.0-33.0); MEAN CORPUSCULAR HGB CONC 34 g/dl (31.0-36.0); MEAN CORPUSCULAR VOLUME 80 fL (82-100); MONOCYTES # (AUTO) 0.4 K/uL (0.1-1.30); MONOCYTES % (AUTO) 8.6 % (2.0-12.0); NEUTROPHILS # (AUTO) 2.7 K/uL (1.8-8.9); NEUTROPHILS % (AUTO) 60.5 % (43.0-81.0); PLATELET COUNT (AUTO) 57 K/uL (150-450); RED BLOOD CELL COUNT(AUTO) 5.52 MIL/uL (4.0-5.2); WHITE BLOOD COUNT (AUTO) 4.4 K/uL (4.3-11.0)
[2024-06-30 14:44] LABS: LYMPHOCYTES % (MANUAL) 33 % (16-48); MONOCYTES % (MANUAL) 6 % (0-11.0); NEUTROPHILS % (MANUAL) 61 (42-76)
[2024-06-30 14:45] LABS: ANISOCYTOSIS 1+; PLATELET ESTIMATE ADEQUATE
[2024-06-30] MEDS ORDERED: NUTR1PAC14 PO (16:16)
[2024-06-30] MEDS ORDERED: FOLI0.8C PO (16:16)
[2024-06-30] MEDS ORDERED: ACET325T53 PO (16:16)
[2024-06-30] MEDS ORDERED: MAG30ORA PO (16:16)
[2024-06-30] MEDS ORDERED: MUPI22OI7 NS (16:16)
[2024-07-01 08:09] LABS: CARCINOEMBRYONIC ANTIGEN (CEA) 4.1 ng/mL (0.0-4.7)
[2024-07-01 10:07] LABS: ERYTHROPOIETIN 6.1 mIU/mL (2.6-18.5)
[2024-07-01 11:08] LABS: *SPE A/G RATIO 1.3 (0.7-1.7); *SPE ALBUMIN 2.7 g/dL (2.9-4.4); *SPE ALPHA-1-GLOBULIN 0.2 g/dL (0.0-0.4); *SPE ALPHA-2-GLOBULIN 0.7 g/dL (0.4-1.0); *SPE BETA GLOBULIN 0.8 g/dL (0.7-1.3); *SPE GLOBULIN, TOTAL 2.1 g/dL (2.2-3.9); *SPE M-SPIKE Not Observed g/dL (Not Observed); *SPE PROTEIN TOTAL 4.8 g/dL (6.0-8.5); *SPEGAMMA GLOBULIN 0.4 g/dL (0.4-1.8)
== END 2024-06-30 16:09 | DRG 640 ==
LOC: ER 03:13 → OBSER 06:12 → MS IN 06:40 → MED 08:47
PROVIDERS: ADMIT Nurse Practitioner Family; ATTEND Nurse Practitioner Acute Care
DX: E86.0 Dehydration (principal); L89.153 Pressure ulcer of sacral region, stage 3; N39.0 Urinary tract infection, site not specified; E44.0 Moderate protein-calorie malnutrition; E88.09 Other disorders of plasma-protein metabolism, not elsewhere classified; R62.7 Adult failure to thrive; D69.6 Thrombocytopenia, unspecified; K21.9 Gastro-esophageal reflux disease without esophagitis; I11.0 Hypertensive heart disease with heart failure; I50.9 Heart failure, unspecified; Z87.11 Personal history of peptic ulcer disease; Z88.1 Allergy status to other antibiotic agents; Z88.2 Allergy status to sulfonamides; Z88.8 Allergy status to other drugs, medicaments and biological substances; Z79.51 Long term (current) use of inhaled steroids; Z79.899 Other long term (current) drug therapy; Z79.82 Long term (current) use of aspirin; J44.9 Chronic obstructive pulmonary disease, unspecified; F41.9 Anxiety disorder, unspecified; F29 Unspecified psychosis not due to a substance or known physiological condition; Z87.891 Personal history of nicotine dependence; D75.1 Secondary polycythemia; G89.29 Other chronic pain; B96.20 Unspecified Escherichia coli [E. coli] as the cause of diseases classified elsewhere; E53.8 Deficiency of other specified B group vitamins; F22 Delusional disorders; G31.84 Mild cognitive impairment of uncertain or unknown etiology; Z87.39 Personal history of other diseases of the musculoskeletal system and connective tissue; E87.6 Hypokalemia; B35.3 Tinea pedis; L30.9 Dermatitis, unspecified; M62.472 Contracture of muscle, left ankle and foot; M62.471 Contracture of muscle, right ankle and foot
CPT/HCPCS: 36415; 70450-TC; 71045-TC; 80048-TC; 80076-TC; 81001; 82378; 82607-TC; 82668; 82784; 82962-TC; 83735-TC; 84100-TC; 84155; 84165; 84439-TC; 84443-TC; 85025-TC; 85385-TC; 85396; 86140-TC; 86225; 86235; 86334; 86431-TC; 86706; 86803; 87081-TC; 87086-TC; 87186-TC; 87340; 97110-TC; 97530-TC; A4223; G0378; J0696; J3480; J3490; J7042; J7050; J7060

== ENCOUNTER 2024-06-30 13:05 | Inpatient (IN) | payer MEDICARE, OTHER ==
[~2024-06-30] VITALS: Ht 175.3 cm; Wt 44.0 kg
[~2024-06-30 13:05] MED LIST changes: -ACET-637 PO; -AMLO-212 PO; -ARGI1POW13 PO; -ATOR10TA PO; +BISA5TAB10 PO; +BISA5TAB56 PO; +CEFD300C3 PO; -CRAN300T PO; -CYAN-51 PO; -DIPH-674 PO; -DIPH25TA62 PO; -DOCU100C36 PO; -FAMO20TA8 PO; -FLUT16SP BNOSTRILS; -GUAI-1189 PO; +LACT-246 PO; -LACT1CAP7 PO; -LEVA15HF4 IH; +MAGN400O6 PO; -MAGN400T52 PO; +MEGE40TA7 PO; -MENT8OIN TP; -METH57CR22 TP; -METO5TAB2 PO; +MIRT-90 PO; +NITR0.4T48 SL; -NYST15PO4 TP; -NYST500P2 TP; -ONDA-97 PO; +Olanzapine PO; +POLY15DR40 EACHEYE; -SENN8.6T19 PO; -SIME80TA15 PO; -TURM1CAP2 PO; -ZINC50TA69 PO
[2024-06-30] MEDS ORDERED: MUPI22OI7 NS (16:16)
[2024-06-30] MEDS ORDERED: MAG30ORA PO (16:16)
[2024-06-30] MEDS ORDERED: ACET325T53 PO (16:16)
[2024-06-30] MEDS ORDERED: FOLI0.8C PO (16:16)
[2024-06-30] MEDS ORDERED: NUTR1PAC14 PO (16:16)
[2024-06-30] MEDS ORDERED: MAGNESIUM HYDROXIDE 30 ML UDC PO PRN ×2 (17:30→18:00)
[2024-06-30] MEDS ORDERED: MAG HYDROX/AL HYDROX/SIMETH 30 ML UDC PO PRN ×2 (17:30→18:00)
[2024-06-30] MEDS ORDERED: ACETAMINOPHEN 325 MG TABLET PO PRN ×2 (17:30→18:00)
[2024-06-30] MEDS ORDERED: TEMAZEPAM 7.5 MG CAPSULE PO PRN (17:30)
[2024-06-30] MEDS ORDERED: LORAZEPAM 0.5 MG TABLET PO PRN (17:30)
[2024-06-30 17:32] VITALS: BP 139/81; TEMP 98.6; O2SAT 96
[2024-06-30] MEDS ORDERED: MORPHINE SULFATE SR 15 MG TABLET.SA PO PRN (18:00)
[2024-06-30] MEDS ORDERED: NALOXONE HCL 4 MG SPRAY NS PRN (18:00)
[2024-06-30] MEDS ORDERED: BISACODYL (5 MG) 5 MG TABLET.DR PO PRN (18:00)
[2024-06-30] MEDS ORDERED: NITROGLYCERIN 0.4 MG/TAB BOTTLE SL PRN (18:00)
[2024-06-30] MEDS: BLOOD SUGAR DIAGNOSTIC 1 EACH STRIP IN ONE (18:05)
[2024-06-30] MEDS ORDERED: POLYVINYL ALCOHOL 15 ML BOTTLE EACHEYE PRN (18:30)
[2024-06-30 20:26] VITALS: BP 119/83; TEMP 98.8; O2SAT 97
[2024-06-30] MEDS: POLYVINYL ALCOHOL 15 ML BOTTLE EACHEYE SCH (20:48)
[2024-06-30] MEDS: MUPIROCIN OINT 2% 22 GM TUBE NS SCH (20:49)
[2024-07-01 08:00] VITALS: BP 142/86; TEMP 98; O2SAT 100
[2024-07-01] MEDS: DIGOXIN 0.125 MG TABLET PO SCH (08:14)
[2024-07-01] MEDS: FOLIC ACID 1 MG TABLET PO SCH (08:14)
[2024-07-01] MEDS: PANTOPRAZOLE 40 MG TABLET.DR PO SCH (08:14)
[2024-07-01] MEDS: BISACODYL (5 MG) 5 MG TABLET.DR PO SCH (08:14)
[2024-07-01] MEDS: ENSURE ENLIVE 237 ML LIQUID (VANILLA) PO SCH (08:14)
[2024-07-01] MEDS: MEGESTROL ACETATE 40 MG TABLET PO SCH (08:15)
[2024-07-01] MEDS: CEFDINIR 300 MG CAPSULE PO SCH (08:15)
[2024-07-01] MEDS: ASPIRIN EC 81 MG TABLET.DR PO SCH (08:15)
[2024-07-01] MEDS: ARGININE/GLUTAMINE/CALCIUM BMB 1 EACH POWD.PACK PO SCH (08:20)
[2024-07-01 08:21] LABS: ALANINE AMINOTRANSFERASE 19 U/L (12-78); ALBUMIN 2.7 g/dL (3.4-5.0); ALKALINE PHOSPHATASE 109 U/L (46-116); ASPARTATE AMINOTRANSFERASE 13 U/L (15-37); BILIRUBIN,TOTAL 0.8 mg/dL (0.2-1.0); CALCIUM, SERUM 8.6 mg/dL (8.5-10.1); CARBON DIOXIDE 23 mmol/L (21-32); CHLORIDE 103 mmol/L (98-107); CREATININE 0.4 mg/dL (0.6-1.3); GLUCOSE 83 mg/dL (74-106); POTASSIUM 3.1 mmol/L (3.5-5.1); SODIUM SERUM 135 mmol/L (136-145); TOTAL PROTEIN, SERUM 5.6 g/dL (6.4-8.2); UREA NITROGEN, BLOOD 9 mg/dL (7-18)
[2024-07-01] MEDS: THERAHONEY GEL 1.5 OZ TUBE TP SCH (08:30)
[2024-07-01] MEDS: POTASSIUM CHLORIDE 20 MEQ TAB.PRT.SR PO ONE (10:41)
[2024-07-01 16:00] VITALS: BP 126/103; TEMP 98.7; O2SAT 96
[2024-07-01 21:14] VITALS: BP 111/62; TEMP 98.1; O2SAT 91
[2024-07-01] MEDS: OLANZAPINE ZYDIS 5 MG TAB.RAPDIS PO ONE (23:03)
[2024-07-02 08:00] VITALS: BP 148/136; TEMP 97.8; O2SAT 95
[2024-07-02] MEDS: OLANZAPINE ZYDIS 5 MG TAB.RAPDIS PO SCH ×2 (09:00→21:20)
[2024-07-02 13:02] LABS: BASOPHILS % (AUTO) 0.1 % (0.0-2.0); EOSINOPHILS % (AUTO) 0.2 % (0.0-6.0); HEMATOCRIT 44 % (33-45); HEMOGLOBIN 14.7 g/dL (11.5-14.8); LYMPHOCYTES # (AUTO) 1.3 K/uL (0.8-4.8); LYMPHOCYTES % (AUTO) 15.4 % (20.0-44.0); MEAN CORPUSCULAR HEMOGLOBIN 27 PG (26.0-33.0); MEAN CORPUSCULAR HGB CONC 33 g/dl (31.0-36.0); MEAN CORPUSCULAR VOLUME 81 fL (82-100); MONOCYTES % (AUTO) 11.8 % (2.0-12.0); NEUTROPHILS # (AUTO) 6.1 K/uL (1.8-8.9); NEUTROPHILS % (AUTO) 72.5 % (43.0-81.0); PLATELET COUNT (AUTO) 55 K/uL (150-450); RED BLOOD CELL COUNT(AUTO) 5.45 MIL/uL (4.0-5.2); RED CELL DISTRIBUTION WIDTH 18.3 % (11.5-15.0); WHITE BLOOD COUNT (AUTO) 8.4 K/uL (4.3-11.0)
[2024-07-02 13:15] LABS: CREATININE 0.5 mg/dL (0.6-1.3)
[2024-07-02 14:00] LABS: LYMPHOCYTES % (MANUAL) 7 % (16-48); MONOCYTES % (MANUAL) 7 % (0-11.0); NEUTROPHILS % (MANUAL) 86 (42-76); PLATELET ESTIMATE DECREASED
[2024-07-02 16:00] VITALS: BP 124/70; TEMP 97.8; O2SAT 98
[2024-07-02 20:59] VITALS: BP 118/68; TEMP 97.9; O2SAT 94
[2024-07-02 22:44] LABS: CHOLESTEROL 208 mg/dL (<200); HDL CHOLESTEROL 53 mg/dL (40-60); LDL 132 mg/dL (0-99); TRIGLYCERIDES 147 mg/dL (30-150)
[2024-07-03 08:00] VITALS: BP 106/61; TEMP 98.1; O2SAT 95
[2024-07-03] MEDS: MEGESTROL ACETATE 40 MG TABLET PO SCH (10:00)
[2024-07-03 16:27] VITALS: BP 103/58; TEMP 98.6; O2SAT 95
[2024-07-03 20:25] VITALS: BP 99/61; TEMP 98.5; O2SAT 93
[2024-07-04 08:00] VITALS: BP 117/57; TEMP 98.1; O2SAT 98
[2024-07-04 08:18] LABS: BASOPHILS % (AUTO) 0.1 % (0.0-2.0); HEMATOCRIT 38 % (33-45); LYMPHOCYTES # (AUTO) 0.8 K/uL (0.8-4.8); LYMPHOCYTES % (AUTO) 6.1 % (20.0-44.0); MEAN CORPUSCULAR HEMOGLOBIN 27 PG (26.0-33.0); MEAN CORPUSCULAR HGB CONC 34 g/dl (31.0-36.0); MEAN CORPUSCULAR VOLUME 80 fL (82-100); MONOCYTES % (AUTO) 7.6 % (2.0-12.0); NEUTROPHILS # (AUTO) 11.1 K/uL (1.8-8.9); NEUTROPHILS % (AUTO) 86.2 % (43.0-81.0); PLATELET COUNT (AUTO) 121 K/uL (150-450); RED CELL DISTRIBUTION WIDTH 17.9 % (11.5-15.0); WHITE BLOOD COUNT (AUTO) 12.9 K/uL (4.3-11.0)
[2024-07-04 20:06] VITALS: BP 104/73; TEMP 98.2; O2SAT 94
[2024-07-05 07:30] LABS: BASOPHILS % (AUTO) 0.1 % (0.0-2.0); EOSINOPHILS % (AUTO) 0.1 % (0.0-6.0); HEMATOCRIT 38 % (33-45); HEMOGLOBIN 12.7 g/dL (11.5-14.8); LYMPHOCYTES # (AUTO) 0.8 K/uL (0.8-4.8); LYMPHOCYTES % (AUTO) 7.6 % (20.0-44.0); MEAN CORPUSCULAR HEMOGLOBIN 27 PG (26.0-33.0); MEAN CORPUSCULAR HGB CONC 34 g/dl (31.0-36.0); MEAN CORPUSCULAR VOLUME 80 fL (82-100); MONOCYTES # (AUTO) 0.8 K/uL (0.1-1.30); NEUTROPHILS # (AUTO) 9.4 K/uL (1.8-8.9); NEUTROPHILS % (AUTO) 85.2 % (43.0-81.0); PLATELET COUNT (AUTO) 225 K/uL (150-450); RED BLOOD CELL COUNT(AUTO) 4.71 MIL/uL (4.0-5.2); RED CELL DISTRIBUTION WIDTH 17.7 % (11.5-15.0)
[2024-07-05 08:00] VITALS: BP 106/58; TEMP 97.6; O2SAT 95
[2024-07-05 16:00] VITALS: BP 117/78; TEMP 97.6; O2SAT 84
== END 2024-07-05 19:37 | disposition short-term general hospital (02) | DRG 885 ==
LOC: GPS 16:58
PROVIDERS: ADMIT Nurse Practitioner Psychiatric/Mental Health
DX: F39 Unspecified mood [affective] disorder (principal); L89.153 Pressure ulcer of sacral region, stage 3; E44.0 Moderate protein-calorie malnutrition; N39.0 Urinary tract infection, site not specified; F29 Unspecified psychosis not due to a substance or known physiological condition; K21.9 Gastro-esophageal reflux disease without esophagitis; J44.9 Chronic obstructive pulmonary disease, unspecified; F41.9 Anxiety disorder, unspecified; D69.6 Thrombocytopenia, unspecified; E53.8 Deficiency of other specified B group vitamins; D75.1 Secondary polycythemia; R62.7 Adult failure to thrive; E88.09 Other disorders of plasma-protein metabolism, not elsewhere classified; E86.0 Dehydration; E87.6 Hypokalemia; B96.20 Unspecified Escherichia coli [E. coli] as the cause of diseases classified elsewhere; I10 Essential (primary) hypertension; Z87.39 Personal history of other diseases of the musculoskeletal system and connective tissue; F25.0 Schizoaffective disorder, bipolar type; G31.84 Mild cognitive impairment of uncertain or unknown etiology; E83.42 Hypomagnesemia; Z88.1 Allergy status to other antibiotic agents; Z88.2 Allergy status to sulfonamides; B35.3 Tinea pedis; L30.9 Dermatitis, unspecified; M24.572 Contracture, left ankle; M24.571 Contracture, right ankle; Z79.899 Other long term (current) drug therapy; Z79.82 Long term (current) use of aspirin
CPT/HCPCS: 36415; 71045-TC; 76700-TC; 80053-TC; 80061-TC; 82565-TC; 82962-TC; 85025-TC; 92526; 92611-TC; 97110-TC; 97530-TC

== ENCOUNTER 2024-07-05 20:02 | Inpatient (IN) | payer MEDICARE, OTHER ==
[~2024-07-05] VITALS: Ht 175.3 cm; Wt 48.5 kg
[2024-07-05] MEDS: ENOXAPARIN SODIUM 40 MG/0.4 ML DISP.SYRIN SQ SCH (07:18)
[~2024-07-05 20:02] MED LIST changes: +ACET325T53 PO; +FOLI0.8C PO; +MAG30ORA PO; -MIRT-90 PO; +MUPI22OI7 NS; +NUTR1PAC14 PO
[2024-07-05 20:50] VITALS: BP 113/69; TEMP 98.8; O2SAT 94
[2024-07-05 21:29] VITALS: O2SAT 92
[2024-07-05] MEDS: LEVALBUTEROL HCL NEB 1.25 MG/0.5 ML VIAL.NEB NEB PRN (21:29)
[2024-07-05] MEDS ORDERED: ONDANSETRON HCL/PF 4 MG/2 ML VIAL IVP PRN (21:30)
[2024-07-05] MEDS ORDERED: Z GUARD REMEDY 4 OZ OINT TP PRN (21:30)
[2024-07-05 21:39] VITALS: O2SAT 98
[2024-07-05] MEDS: CEFTRIAXONE 1GM BAG (ER ONLY) 50 ML IV ONE (22:08)
[2024-07-05] MEDS: IV NS 0.9% 1,000 ML IV PRN (22:25)
[2024-07-05] MEDS: CEFTRIAXONE 1 G in IV D5W 50 ML IV SCH (22:27)
[2024-07-06] VITALS (8 sets, daily range): BP systolic 102–124; BP diastolic 65–75; TEMP 97.5–98.8; O2SAT 91–100
[2024-07-06 00:02] LABS: BASOPHILS % (AUTO) 0.1 % (0.0-2.0); HEMATOCRIT 37 % (33-45); HEMOGLOBIN 12.8 g/dL (11.5-14.8); LYMPHOCYTES # (AUTO) 0.4 K/uL (0.8-4.8); LYMPHOCYTES % (AUTO) 4.2 % (20.0-44.0); MEAN CORPUSCULAR HEMOGLOBIN 28 PG (26.0-33.0); MEAN CORPUSCULAR HGB CONC 35 g/dl (31.0-36.0); MEAN CORPUSCULAR VOLUME 79 fL (82-100); MONOCYTES # (AUTO) 0.7 K/uL (0.1-1.30); MONOCYTES % (AUTO) 6.4 % (2.0-12.0); NEUTROPHILS # (AUTO) 9.5 K/uL (1.8-8.9); NEUTROPHILS % (AUTO) 89.3 % (43.0-81.0); PLATELET COUNT (AUTO) 349 K/uL (150-450); RED BLOOD CELL COUNT(AUTO) 4.64 MIL/uL (4.0-5.2); RED CELL DISTRIBUTION WIDTH 17.7 % (11.5-15.0); WHITE BLOOD COUNT (AUTO) 10.6 K/uL (4.3-11.0)
[2024-07-06 00:07] LABS: CALCIUM, SERUM 9.1 mg/dL (8.5-10.1); CREATININE 0.7 mg/dL (0.6-1.3); POTASSIUM 3.6 mmol/L (3.5-5.1)
[2024-07-06 00:09] LABS: ABG OXYGEN SATURATION 92.4 % (94.0-98.0); ABG PCO2 25.3 mmHg (32.0-45.0); ABG PH 7.616 (7.350-7.450); ABG PO2 58.8 mmHg (83.0-108.0); COHb 0.3 % (0.5-1.5); MetHb 0.2 % (0.0-1.5); O2Hb 91.9 % (94.0-97.0); SITE, ABG RIGHT BRACHIAL
[2024-07-06 01:35] LABS: LYMPHOCYTES % (MANUAL) 8 % (16-48); MONOCYTES % (MANUAL) 7 % (0-11.0); NEUTROPHILS % (MANUAL) 85 (42-76)
[2024-07-06] MEDS: DILTIAZEM HCL 25 MG IV IV ONE (01:59)
[2024-07-06] MEDS ORDERED: DILTIAZEM HCL 50 MG IV IV ONE (02:00)
[2024-07-06 07:28] LABS: BASOPHILS % (AUTO) 0.1 % (0.0-2.0); HEMATOCRIT 38 % (33-45); HEMOGLOBIN 12.4 g/dL (11.5-14.8); LYMPHOCYTES # (AUTO) 0.7 K/uL (0.8-4.8); LYMPHOCYTES % (AUTO) 7.8 % (20.0-44.0); MEAN CORPUSCULAR HEMOGLOBIN 27 PG (26.0-33.0); MEAN CORPUSCULAR HGB CONC 33 g/dl (31.0-36.0); MEAN CORPUSCULAR VOLUME 82 fL (82-100); MONOCYTES # (AUTO) 0.7 K/uL (0.1-1.30); MONOCYTES % (AUTO) 7.9 % (2.0-12.0); NEUTROPHILS # (AUTO) 7.3 K/uL (1.8-8.9); NEUTROPHILS % (AUTO) 84.2 % (43.0-81.0); PLATELET COUNT (AUTO) 339 K/uL (150-450); RED BLOOD CELL COUNT(AUTO) 4.68 MIL/uL (4.0-5.2); RED CELL DISTRIBUTION WIDTH 18.2 % (11.5-15.0); WHITE BLOOD COUNT (AUTO) 8.7 K/uL (4.3-11.0)
[2024-07-06] MEDS: PANTOPRAZOLE 40 MG VIAL IV SCH (08:10)
[2024-07-06 08:48] LABS: CALCIUM, SERUM 8.9 mg/dL (8.5-10.1); CREATININE 0.6 mg/dL (0.6-1.3); MAGNESIUM 2.1 mg/dL (1.8-2.4); POTASSIUM 3.3 mmol/L (3.5-5.1)
[2024-07-06 09:06] LABS: THYROID STIMULATING HORMONE 1.09 uIU/mL (0.358-3.74)
[2024-07-06] MEDS: DAKINS QUARTER STRENGTH (0.125%) 480 ML BOTTLE TOP SCH (09:30)
[2024-07-06] MEDS: POTASSIUM CL. PREMIX PERIPHER. 50 ML IV SCH (09:53)
[2024-07-06] MEDS ORDERED: INSULIN REGULAR, HUMAN 100 UNIT/ML 3 ML VIAL SQ PRN (10:30)
[2024-07-06] MEDS ORDERED: DEXTROSE 50%-WATER 50 ML DISP.SYRIN IV PRN (10:30)
[2024-07-06] MEDS: IV D5/0.45 NACL 1,000 ML IV SCH (10:33)
[2024-07-06] MEDS ORDERED: BLOOD SUGAR DIAGNOSTIC 1 EACH STRIP IN SCH (12:00)
[2024-07-06] MEDS ORDERED: POTASSIUM CL. PREMIX PERIPHER. 50 ML IV SCH (13:00)
[2024-07-06] MEDS: METRONIDAZOLE 500MG/ NS 100ML 500 MG in PREMIX 1 EA IV SCH (13:03)
[2024-07-06] MEDS: ARIPIPRAZOLE 5 MG TABLET PO SCH (16:18)
[2024-07-06] MEDS: K PHOS NEUTRAL 250 MG TABLET PO ONE (16:18)
[2024-07-06] MEDS ORDERED: ACETAMINOPHEN 650 MG/20.3 ML UDC NG PRN (17:00)
[2024-07-06 17:04] LABS: BILIRUBIN,DIRECT 0.3 mg/dL (0.0-0.2); BILIRUBIN,TOTAL 0.8 mg/dL (0.2-1.0); TOTAL PROTEIN, SERUM 6.1 g/dL (6.4-8.2)
[2024-07-06] MEDS: ACETAMINOPHEN 325 MG TABLET PO PRN (17:04)
[2024-07-06] MEDS: ENOXAPARIN SODIUM 40 MG/0.4 ML DISP.SYRIN SQ SCH (17:06)
[2024-07-06 19:45] LABS: D-DIMER 1.31 mg/L(FEU (0.17-0.50); INR 1.14 (0.91-1.10); PARTIAL THROMBOPLASTIN TIME 31.7 SEC (24.3-34.3)
[2024-07-07] VITALS: BP 113/61; TEMP 97.9; O2SAT 98
[2024-07-07 04:00] VITALS: BP_SYST 106; BP_SYST 114; BP_DIAS 66; BP_DIAS 67; TEMP 98.2; O2SAT 97
[2024-07-07 06:40] LABS: BASOPHILS % (AUTO) 0.1 % (0.0-2.0); EOSINOPHILS % (AUTO) 0.1 % (0.0-6.0); HEMATOCRIT 38 % (33-45); HEMOGLOBIN 12.5 g/dL (11.5-14.8); LYMPHOCYTES # (AUTO) 0.5 K/uL (0.8-4.8); LYMPHOCYTES % (AUTO) 4.9 % (20.0-44.0); MEAN CORPUSCULAR HEMOGLOBIN 27 PG (26.0-33.0); MEAN CORPUSCULAR HGB CONC 32 g/dl (31.0-36.0); MEAN CORPUSCULAR VOLUME 84 fL (82-100); MONOCYTES # (AUTO) 0.8 K/uL (0.1-1.30); NEUTROPHILS # (AUTO) 9.2 K/uL (1.8-8.9); NEUTROPHILS % (AUTO) 86.9 % (43.0-81.0); PLATELET COUNT (AUTO) 379 K/uL (150-450); RED BLOOD CELL COUNT(AUTO) 4.58 MIL/uL (4.0-5.2); WHITE BLOOD COUNT (AUTO) 10.6 K/uL (4.3-11.0)
[2024-07-07 07:12] LABS: CALCIUM, SERUM 8.7 mg/dL (8.5-10.1); CREATININE 0.4 mg/dL (0.6-1.3); MAGNESIUM 2.1 mg/dL (1.8-2.4); PHOSPHORUS 3.2 mg/dL (2.5-4.9); POTASSIUM 3.7 mmol/L (3.5-5.1)
[2024-07-07 08:00] VITALS: BP 112/60; TEMP 97.6; O2SAT 100
[2024-07-07] MEDS: ARIPIPRAZOLE 2 MG TABLET PO SCH (08:37)
[2024-07-07] MEDS ORDERED: IOHEXOL-350 100 ML VIAL IV ONE (10:34)
[2024-07-07] MEDS ORDERED: IOHEXOL-300 100 ML VIAL IV ONE (10:34)
[2024-07-07] MEDS: IV D5/0.45 NACL 1,000 ML IV PRN (12:04)
[2024-07-07] MEDS: ENOXAPARIN SODIUM 40 MG/0.4 ML DISP.SYRIN SQ SCH (13:00)
[2024-07-07] MEDS: CEFEPIME 2 GM in IV D5W 100 ML IV SCH (15:17)
[2024-07-07 16:00] VITALS: BP 114/63; TEMP 98.2; O2SAT 99
[2024-07-07 16:27] VITALS: BP 112/63; TEMP 98.2; O2SAT 99
[2024-07-07 20:13] VITALS: BP 116/49; TEMP 97.7; O2SAT 96
[2024-07-08] VITALS: BP 115/69; TEMP 97.9; O2SAT 99
[2024-07-08 04:31] VITALS: BP 115/69; TEMP 97.9; O2SAT 99
[2024-07-08 07:00] VITALS: BP 91/56; TEMP 98.4; O2SAT 94
[2024-07-08 08:06] LABS: EOSINOPHILS % (AUTO) 0.5 % (0.0-6.0); HEMATOCRIT 33 % (33-45); HEMOGLOBIN 10.8 g/dL (11.5-14.8); LYMPHOCYTES # (AUTO) 0.4 K/uL (0.8-4.8); LYMPHOCYTES % (AUTO) 5.4 % (20.0-44.0); MEAN CORPUSCULAR HEMOGLOBIN 27 PG (26.0-33.0); MEAN CORPUSCULAR HGB CONC 33 g/dl (31.0-36.0); MEAN CORPUSCULAR VOLUME 82 fL (82-100); MONOCYTES # (AUTO) 0.6 K/uL (0.1-1.30); MONOCYTES % (AUTO) 7.4 % (2.0-12.0); NEUTROPHILS # (AUTO) 6.7 K/uL (1.8-8.9); NEUTROPHILS % (AUTO) 86.7 % (43.0-81.0); PLATELET COUNT (AUTO) 431 K/uL (150-450); RED BLOOD CELL COUNT(AUTO) 4.03 MIL/uL (4.0-5.2); RED CELL DISTRIBUTION WIDTH 18.2 % (11.5-15.0); WHITE BLOOD COUNT (AUTO) 7.7 K/uL (4.3-11.0)
[2024-07-08 08:08] LABS: ALBUMIN 1.6 g/dL (3.4-5.0); BILIRUBIN,DIRECT 0.2 mg/dL (0.0-0.2); BILIRUBIN,TOTAL 0.4 mg/dL (0.2-1.0)
[2024-07-08 08:32] LABS: CALCIUM, SERUM 8.2 mg/dL (8.5-10.1); CREATININE 0.4 mg/dL (0.6-1.3); MAGNESIUM 1.8 mg/dL (1.8-2.4); PHOSPHORUS 3.2 mg/dL (2.5-4.9)
[2024-07-08 08:44] LABS: POTASSIUM 2.7 mmol/L (3.5-5.1)
[2024-07-08] MEDS: POTASSIUM CL. PREMIX PERIPHER. 50 ML IV SCH (09:12)
[2024-07-08] MEDS ORDERED: MEGE400O4 PO (09:21)
[2024-07-08] MEDS ORDERED: CEFD300C3 PO (09:21)
[2024-07-08] MEDS ORDERED: LACT-246 PO (09:21)
[2024-07-08] MEDS: FOLIC ACID 1 MG TABLET PO SCH (11:39)
[2024-07-08 12:00] VITALS: BP 102/52; TEMP 98.4; O2SAT 94
[2024-07-08] MEDS: PANTOPRAZOLE 40 MG TABLET.DR PO SCH (15:31)
[2024-07-08 16:00] VITALS: BP 96/59; TEMP 97.9; O2SAT 96
[2024-07-08] MEDS: POLYVINYL ALCOHOL 15 ML BOTTLE EACHEYE SCH (16:54)
[2024-07-08] MEDS: CHLORHEXIDINE GLUCONATE 15 ML UDC MM SCH (16:54)
[2024-07-08 20:00] VITALS: BP 107/55; TEMP 98.1; O2SAT 97
[2024-07-09] VITALS: BP 114/63; TEMP 98.2; O2SAT 95
[2024-07-09 04:00] VITALS: BP 114/70; TEMP 98.1; O2SAT 94
[2024-07-09 06:07] LABS: FREE KAPPA LT CHAINS SERUM 25.6 mg/L (3.3-19.4); FREE LAMBDA LT CHAIN SERUM 107.4 mg/L (5.7-26.3); KAPPA/LAMBDA RATIO SERUM 0.24 (0.26-1.65)
[2024-07-09 08:00] VITALS: BP 113/59; TEMP 98.2; O2SAT 93
[2024-07-09] MEDS ORDERED: FOLIC ACID 1 MG TABLET PO SCH (09:00)
[2024-07-09] MEDS: DIGOXIN 0.125 MG TABLET PO SCH (09:57)
[2024-07-09 10:05] LABS: EOSINOPHILS % (AUTO) 0.3 % (0.0-6.0); HEMATOCRIT 36 % (33-45); HEMOGLOBIN 11.9 g/dL (11.5-14.8); LYMPHOCYTES # (AUTO) 0.6 K/uL (0.8-4.8); LYMPHOCYTES % (AUTO) 6.4 % (20.0-44.0); MEAN CORPUSCULAR HEMOGLOBIN 27 PG (26.0-33.0); MEAN CORPUSCULAR HGB CONC 33 g/dl (31.0-36.0); MEAN CORPUSCULAR VOLUME 81 fL (82-100); MONOCYTES # (AUTO) 0.6 K/uL (0.1-1.30); MONOCYTES % (AUTO) 6.1 % (2.0-12.0); NEUTROPHILS # (AUTO) 8.7 K/uL (1.8-8.9); NEUTROPHILS % (AUTO) 87.2 % (43.0-81.0); PLATELET COUNT (AUTO) 550 K/uL (150-450); RED CELL DISTRIBUTION WIDTH 18.4 % (11.5-15.0)
[2024-07-09 10:11] LABS: CALCIUM, SERUM 7.9 mg/dL (8.5-10.1); CREATININE 0.4 mg/dL (0.6-1.3)
[2024-07-09 10:27] LABS: POTASSIUM 2.7 mmol/L (3.5-5.1)
[2024-07-09] MEDS ORDERED: Magnesium 1GM/D5W 100ML PREMIX PIGGYBACK IV ONE (10:30)
[2024-07-09] MEDS: ASPIRIN EC 81 MG TABLET.DR PO SCH (10:32)
[2024-07-09] MEDS: POTASSIUM CL. PREMIX PERIPHER. 50 ML IV SCH (11:02)
[2024-07-09 11:36] LABS: IRON, SERUM 12 ug/dl (50-175); TOTAL IRON BINDING CAPACITY 68 ug/dl (250-450)
[2024-07-09 11:52] LABS: FERRITIN 741 ng/mL (8-388)
[2024-07-09] MEDS: Potassium Chloride 10 MEQ, LIDOCAINE HCL/PF 1% 1 ML in IV NS 0.9% 50 ML IV SCH (12:08)
[2024-07-09] MEDS: Magnesium 1GM/D5W 100ML PREMIX 100 ML IV SCH (16:16)
[2024-07-09 20:24] VITALS: BP 127/71; TEMP 98.2; O2SAT 97
[2024-07-10] VITALS: BP 114/72; TEMP 98.2; O2SAT 97
[2024-07-10 04:30] VITALS: BP 123/86; TEMP 98.2; O2SAT 97
[2024-07-10 08:17] VITALS: BP 124/72; TEMP 98; O2SAT 97
[2024-07-10 11:17] LABS: BASOPHILS % (AUTO) 0.1 % (0.0-2.0); EOSINOPHILS # (AUTO) 0.1 K/uL (0.0-0.7); EOSINOPHILS % (AUTO) 0.6 % (0.0-6.0); HEMATOCRIT 36 % (33-45); HEMOGLOBIN 11.8 g/dL (11.5-14.8); LYMPHOCYTES # (AUTO) 0.7 K/uL (0.8-4.8); LYMPHOCYTES % (AUTO) 6.4 % (20.0-44.0); MEAN CORPUSCULAR HEMOGLOBIN 26 PG (26.0-33.0); MEAN CORPUSCULAR HGB CONC 33 g/dl (31.0-36.0); MEAN CORPUSCULAR VOLUME 80 fL (82-100); MONOCYTES # (AUTO) 0.6 K/uL (0.1-1.30); MONOCYTES % (AUTO) 5.9 % (2.0-12.0); PLATELET COUNT (AUTO) 586 K/uL (150-450); RED BLOOD CELL COUNT(AUTO) 4.51 MIL/uL (4.0-5.2); RED CELL DISTRIBUTION WIDTH 18.4 % (11.5-15.0); WHITE BLOOD COUNT (AUTO) 10.3 K/uL (4.3-11.0)
[2024-07-10 11:35] LABS: CALCIUM, SERUM 7.9 mg/dL (8.5-10.1); CREATININE 0.4 mg/dL (0.6-1.3); POTASSIUM 3.1 mmol/L (3.5-5.1)
[2024-07-10 11:48] LABS: MAGNESIUM 1.8 mg/dL (1.8-2.4)
[2024-07-10 12:00] VITALS: BP 110/78; TEMP 98.1; O2SAT 97
[2024-07-10 16:11] VITALS: BP 106/68; TEMP 98.5; O2SAT 98
[2024-07-10 21:15] VITALS: BP 99/54; TEMP 97.5; O2SAT 98
[2024-07-11 00:38] VITALS: BP 116/58; TEMP 97.9; O2SAT 98
[2024-07-11 06:41] VITALS: BP 121/76; TEMP 97.9; O2SAT 97
[2024-07-11 07:00] VITALS: BP 98/64; TEMP 98.1; O2SAT 98
[2024-07-11 13:51] LABS: CALCIUM, SERUM 7.6 mg/dL (8.5-10.1); CREATININE 0.5 mg/dL (0.6-1.3)
[2024-07-11 13:58] LABS: BASOPHILS % (AUTO) 0.1 % (0.0-2.0); EOSINOPHILS # (AUTO) 0.1 K/uL (0.0-0.7); EOSINOPHILS % (AUTO) 0.6 % (0.0-6.0); HEMATOCRIT 35 % (33-45); HEMOGLOBIN 11.6 g/dL (11.5-14.8); LYMPHOCYTES # (AUTO) 0.8 K/uL (0.8-4.8); LYMPHOCYTES % (AUTO) 7.3 % (20.0-44.0); MEAN CORPUSCULAR HEMOGLOBIN 27 PG (26.0-33.0); MEAN CORPUSCULAR HGB CONC 34 g/dl (31.0-36.0); MEAN CORPUSCULAR VOLUME 80 fL (82-100); MONOCYTES # (AUTO) 0.6 K/uL (0.1-1.30); MONOCYTES % (AUTO) 5.5 % (2.0-12.0); NEUTROPHILS # (AUTO) 9.9 K/uL (1.8-8.9); NEUTROPHILS % (AUTO) 86.5 % (43.0-81.0); PLATELET COUNT (AUTO) 607 K/uL (150-450); RED CELL DISTRIBUTION WIDTH 18.5 % (11.5-15.0); WHITE BLOOD COUNT (AUTO) 11.5 K/uL (4.3-11.0)
[2024-07-11 14:03] LABS: POTASSIUM 2.7 mmol/L (3.5-5.1)
[2024-07-11] MEDS: POTASSIUM CHLORIDE 20 MEQ POWDER PACKET PO SCH (15:11)
[2024-07-11] MEDS ORDERED: POTASSIUM CHLORIDE 10 MEQ/50 ML PREMIXED IVPB FOR PERIPHERAL LINE IV SCH (15:30)
[2024-07-11 16:00] VITALS: BP 90/73; TEMP 98.4; O2SAT 96
[2024-07-11] MEDS: Magnesium 1GM/D5W 100ML PREMIX PIGGYBACK IV ONE (16:05)
[2024-07-11] MEDS: POTASSIUM CL. PREMIX PERIPHER. 50 ML IV SCH (16:36)
[2024-07-11 20:00] VITALS: BP 118/71; TEMP 97.5; O2SAT 100
[2024-07-12] VITALS: BP 128/67; TEMP 99; O2SAT 97
[2024-07-12 08:00] VITALS: BP 130/67; TEMP 98.4; O2SAT 98
[2024-07-12 11:48] LABS: BASOPHILS % (AUTO) 0.3 % (0.0-2.0); EOSINOPHILS # (AUTO) 0.1 K/uL (0.0-0.7); EOSINOPHILS % (AUTO) 0.6 % (0.0-6.0); HEMATOCRIT 36 % (33-45); HEMOGLOBIN 11.8 g/dL (11.5-14.8); LYMPHOCYTES # (AUTO) 1.1 K/uL (0.8-4.8); LYMPHOCYTES % (AUTO) 10.3 % (20.0-44.0); MEAN CORPUSCULAR HEMOGLOBIN 27 PG (26.0-33.0); MEAN CORPUSCULAR HGB CONC 33 g/dl (31.0-36.0); MEAN CORPUSCULAR VOLUME 80 fL (82-100); MONOCYTES # (AUTO) 0.6 K/uL (0.1-1.30); MONOCYTES % (AUTO) 5.4 % (2.0-12.0); NEUTROPHILS # (AUTO) 8.8 K/uL (1.8-8.9); NEUTROPHILS % (AUTO) 83.4 % (43.0-81.0); PLATELET COUNT (AUTO) 667 K/uL (150-450); RED BLOOD CELL COUNT(AUTO) 4.43 MIL/uL (4.0-5.2); WHITE BLOOD COUNT (AUTO) 10.6 K/uL (4.3-11.0)
[2024-07-12 12:00] VITALS: BP 142/61; TEMP 97.5; O2SAT 96
[2024-07-12 12:05] LABS: CALCIUM, SERUM 8.2 mg/dL (8.5-10.1); CREATININE 0.4 mg/dL (0.6-1.3); MAGNESIUM 2.1 mg/dL (1.8-2.4); PHOSPHORUS 1.9 mg/dL (2.5-4.9); POTASSIUM 3.8 mmol/L (3.5-5.1)
[2024-07-12 12:21] LABS: D-DIMER 2.29 mg/L(FEU (0.17-0.50); INR 1.12 (0.91-1.10); PARTIAL THROMBOPLASTIN TIME 31.6 SEC (24.3-34.3); PROTHROMBIN TIME 11.8 SECS (9.2-11.1)
[2024-07-12 16:00] VITALS: BP 123/70; TEMP 98.2; O2SAT 97
[2024-07-12] MEDS: Sodium Phosphate 15 MMOL in IV NS 0.9% 245 ML IV SCH (17:49)
[2024-07-12 20:00] VITALS: BP 125/69; TEMP 98.1; O2SAT 98
[2024-07-13] VITALS: BP 113/63; TEMP 98.1; O2SAT 96
[2024-07-13 04:00] VITALS: BP 118/72; TEMP 98.1; O2SAT 97
[2024-07-13 06:44] LABS: BASOPHILS % (AUTO) 0.4 % (0.0-2.0); EOSINOPHILS # (AUTO) 0.1 K/uL (0.0-0.7); EOSINOPHILS % (AUTO) 0.6 % (0.0-6.0); HEMATOCRIT 36 % (33-45); HEMOGLOBIN 11.9 g/dL (11.5-14.8); LYMPHOCYTES % (AUTO) 8.3 % (20.0-44.0); MEAN CORPUSCULAR HEMOGLOBIN 27 PG (26.0-33.0); MEAN CORPUSCULAR HGB CONC 33 g/dl (31.0-36.0); MEAN CORPUSCULAR VOLUME 82 fL (82-100); MONOCYTES # (AUTO) 0.6 K/uL (0.1-1.30); MONOCYTES % (AUTO) 5.4 % (2.0-12.0); NEUTROPHILS # (AUTO) 10.3 K/uL (1.8-8.9); NEUTROPHILS % (AUTO) 85.3 % (43.0-81.0); PLATELET COUNT (AUTO) 619 K/uL (150-450); RED BLOOD CELL COUNT(AUTO) 4.46 MIL/uL (4.0-5.2); RED CELL DISTRIBUTION WIDTH 18.1 % (11.5-15.0)
[2024-07-13] MEDS ORDERED: ANESTHESIA TRAY IN PYXIS 1 EA TRAY MC ONE (06:46)
[2024-07-13 06:53] LABS: D-DIMER 3.05 mg/L(FEU (0.17-0.50); INR 1.21 (0.91-1.10); PARTIAL THROMBOPLASTIN TIME 31.5 SEC (24.3-34.3); PROTHROMBIN TIME 12.7 SECS (9.2-11.1)
[2024-07-13] MEDS ORDERED: KETAMINE HCL (500MG/10ML) 50 MG/ML VIAL ONE (06:57)
[2024-07-13 07:24] LABS: CALCIUM, SERUM 8.2 mg/dL (8.5-10.1); CREATININE 0.4 mg/dL (0.6-1.3); PHOSPHORUS 2.6 mg/dL (2.5-4.9); POTASSIUM 3.1 mmol/L (3.5-5.1)
[2024-07-13 08:00] VITALS: BP 138/79; TEMP 98.3; O2SAT 97
[2024-07-13] MEDS: POTASSIUM CL. PREMIX PERIPHER. 50 ML IV SCH (09:58)
[2024-07-13 20:00] VITALS: BP 137/75; TEMP 98.1; O2SAT 99
[2024-07-13 22:18] VITALS: BP 103/17; TEMP 98.1; O2SAT 99
[2024-07-14] VITALS (9 sets, daily range): BP systolic 108–148; BP diastolic 54–91; TEMP 97.3–99.1; O2SAT 95–100
[2024-07-14 08:56] LABS: BASOPHILS % (AUTO) 0.3 % (0.0-2.0); EOSINOPHILS # (AUTO) 0.1 K/uL (0.0-0.7); EOSINOPHILS % (AUTO) 0.4 % (0.0-6.0); HEMATOCRIT 36 % (33-45); HEMOGLOBIN 11.8 g/dL (11.5-14.8); LYMPHOCYTES # (AUTO) 1.2 K/uL (0.8-4.8); LYMPHOCYTES % (AUTO) 9.6 % (20.0-44.0); MEAN CORPUSCULAR HEMOGLOBIN 27 PG (26.0-33.0); MEAN CORPUSCULAR HGB CONC 33 g/dl (31.0-36.0); MEAN CORPUSCULAR VOLUME 81 fL (82-100); MONOCYTES # (AUTO) 0.7 K/uL (0.1-1.30); MONOCYTES % (AUTO) 5.6 % (2.0-12.0); NEUTROPHILS # (AUTO) 10.6 K/uL (1.8-8.9); NEUTROPHILS % (AUTO) 84.1 % (43.0-81.0); PLATELET COUNT (AUTO) 580 K/uL (150-450); RED BLOOD CELL COUNT(AUTO) 4.38 MIL/uL (4.0-5.2); WHITE BLOOD COUNT (AUTO) 12.6 K/uL (4.3-11.0)
[2024-07-14 09:04] LABS: CALCIUM, SERUM 8.5 mg/dL (8.5-10.1); CREATININE 0.4 mg/dL (0.6-1.3); POTASSIUM 3.4 mmol/L (3.5-5.1)
[2024-07-14] MEDS ORDERED: ANESTHESIA TRAY IN PYXIS 1 EA TRAY MC ONE ×2 (10:36→14:53)
[2024-07-14] MEDS ORDERED: ROCURONIUM BROMIDE 50 MG/5 ML ONE (11:48)
[2024-07-14] MEDS ORDERED: FAMOTIDINE/PF INJ 20 MG/2 ML VIAL IV ONE (11:48)
[2024-07-14] MEDS ORDERED: FENTANYL PF 100MCG/2ML AMPUL ONE ×2 (11:48→13:33)
[2024-07-14] MEDS ORDERED: SUGAMMADEX SODIUM 200 MG/2 ML VIAL IV ONE (11:49)
[2024-07-14] MEDS ORDERED: FENTANYL PF 100MCG/2ML AMPUL IV PRN (14:00)
[2024-07-14] MEDS ORDERED: ONDANSETRON HCL/PF 4 MG/2 ML VIAL IVP PRN (14:00)
[2024-07-14] MEDS: POTASSIUM CHLORIDE 20 MEQ POWDER PACKET NG SCH (14:26)
[2024-07-14] MEDS: VITAL AF 1.2 1,000 ML BOTTLE GT PRN (14:44)
[2024-07-15] VITALS: BP 106/74; TEMP 97.9; O2SAT 100
[2024-07-15 04:00] VITALS: BP 121/73; TEMP 98.1; O2SAT 99
[2024-07-15 06:53] LABS: CALCIUM, SERUM 7.7 mg/dL (8.5-10.1); CREATININE 0.3 mg/dL (0.6-1.3); POTASSIUM 3.5 mmol/L (3.5-5.1)
[2024-07-15 07:01] LABS: MAGNESIUM 2.1 mg/dL (1.8-2.4); PHOSPHORUS 2.3 mg/dL (2.5-4.9)
[2024-07-15 08:32] VITALS: BP 112/48; TEMP 98.2; O2SAT 99
[2024-07-15 12:00] VITALS: BP 120/66; TEMP 97.5; O2SAT 97
[2024-07-15] MEDS: IV NS 0.9% 500 ML IV ONE (12:53)
[2024-07-15 13:29] LABS: CALCIUM, SERUM 7.3 mg/dL (8.5-10.1); CREATININE 0.4 mg/dL (0.6-1.3); MAGNESIUM 1.7 mg/dL (1.8-2.4)
[2024-07-15 13:38] LABS: POTASSIUM 2.9 mmol/L (3.5-5.1)
[2024-07-15] MEDS: POTASSIUM CL. PREMIX PERIPHER. 50 ML IV SCH (15:03)
[2024-07-15] MEDS: POTASSIUM CHLORIDE 20 MEQ POWDER PACKET GT ONE ×2 (15:03→16:14)
[2024-07-15] MEDS: K PHOS NEUTRAL 250 MG TABLET PO ONE (16:14)
[2024-07-15] MEDS: Magnesium 1GM/D5W 100ML PREMIX 100 ML IV SCH (16:14)
[2024-07-15 16:44] VITALS: BP 135/87; TEMP 97.9; O2SAT 97
[2024-07-15] MEDS: PANTOPRAZOLE 40 MG/PACK PACK GT SCH (16:56)
[2024-07-15 20:00] VITALS: BP 129/73; TEMP 98.2; O2SAT 100
[2024-07-15 22:31] LABS: CALCIUM, SERUM 7.5 mg/dL (8.5-10.1); CREATININE 0.4 mg/dL (0.6-1.3); MAGNESIUM 2.5 mg/dL (1.8-2.4); POTASSIUM 3.5 mmol/L (3.5-5.1)
[2024-07-16] VITALS (8 sets, daily range): BP systolic 120–146; BP diastolic 59–82; TEMP 97.3–98.6; O2SAT 97–99
[2024-07-16 06:54] LABS: CALCIUM, SERUM 7.7 mg/dL (8.5-10.1); CREATININE 0.3 mg/dL (0.6-1.3); PHOSPHORUS 1.8 mg/dL (2.5-4.9); POTASSIUM 3.3 mmol/L (3.5-5.1)
[2024-07-16] MEDS: METOPROLOL TARTRATE 25 MG TABLET PO SCH (09:00)
[2024-07-16] MEDS: POTASSIUM CHLORIDE 20 MEQ POWDER PACKET NG SCH (10:36)
[2024-07-16] MEDS: POTASSIUM CHLORIDE 20 MEQ POWDER PACKET PO ONE (10:45)
[2024-07-16] MEDS ORDERED: METO25TA20 PO (13:46)
[2024-07-16] MEDS: NEUTRA PHOS 1 POWD.PACKET NG ONE (16:28)
== END 2024-07-16 17:00 | DRG 981 ==
LOC: MED 20:02 → TELE 21:29
PROVIDERS: ADMIT Nurse Practitioner Family; ATTEND Nurse Practitioner Acute Care
PROC: 0DH63UZ Insertion of Feeding Device into Stomach, Percutaneous Approach (ICD-10-PCS; principal; 2024-07-13 07:00)
PROC: 0KBN0ZZ Excision of Right Hip Muscle, Open Approach (ICD-10-PCS; 2024-07-14)
PROC: 0KBP0ZZ Excision of Left Hip Muscle, Open Approach (ICD-10-PCS; 2024-07-14)
DX: J69.0 Pneumonitis due to inhalation of food and vomit (principal); E43 Unspecified severe protein-calorie malnutrition; L89.154 Pressure ulcer of sacral region, stage 4; G93.41 Metabolic encephalopathy; J96.01 Acute respiratory failure with hypoxia; D68.59 Other primary thrombophilia; N39.0 Urinary tract infection, site not specified; I96 Gangrene, not elsewhere classified; J44.0 Chronic obstructive pulmonary disease with (acute) lower respiratory infection; R62.7 Adult failure to thrive; D69.6 Thrombocytopenia, unspecified; K29.70 Gastritis, unspecified, without bleeding; R13.10 Dysphagia, unspecified; M81.0 Age-related osteoporosis without current pathological fracture; Z79.899 Other long term (current) drug therapy; F29 Unspecified psychosis not due to a substance or known physiological condition; F41.9 Anxiety disorder, unspecified; F32.A Depression, unspecified; E88.09 Other disorders of plasma-protein metabolism, not elsewhere classified; Z79.82 Long term (current) use of aspirin; K21.9 Gastro-esophageal reflux disease without esophagitis; Y95 Nosocomial condition; Z79.891 Long term (current) use of opiate analgesic; Z88.1 Allergy status to other antibiotic agents; Z88.2 Allergy status to sulfonamides; Z88.8 Allergy status to other drugs, medicaments and biological substances; E53.8 Deficiency of other specified B group vitamins; I10 Essential (primary) hypertension; D75.1 Secondary polycythemia; D64.9 Anemia, unspecified; Z87.440 Personal history of urinary (tract) infections; E86.0 Dehydration; Z74.09 Other reduced mobility; E83.42 Hypomagnesemia; E87.6 Hypokalemia; D75.839 Thrombocytosis, unspecified
CPT/HCPCS: 31720; 36415; 36600; 43246; 71045-TC; 71260-TC; 80048-TC; 80076-TC; 82728-TC; 83540-TC; 83735-TC; 83880; 84100-TC; 84443-TC; 84484-TC; 85025-TC; 85378-TC; 85396; 85610-TC; 85730-TC; 86850-TC; 87040-TC; 87070-TC; 87081-TC; 87205-TC; 92526; 92611-TC; 93307-TC; 93970-TC; 94640-TC; 94799-TC; A4216; A4223; A6253; A6403; A9563; G0378; J0690; J0692; J0696; J1308; J1650; J2470; J2704; J3010; J3475; J3480; J3490; J7030; J7040; J7042; J7050; J7060; Q9967